=== PATIENT | male | born 1970 | race Caucasian/White ===

== ENCOUNTER 2016-11-23 09:08 | Emergency (ER) | payer OTHER ==
--- NOTE | 2016-11-23 09:28 | EDM.PDOC ---
ED HPI GENERAL MEDICAL PROBLEM - General Chief Complaint: ENT Problem Stated Complaint: SINUS INFECTION Time Seen by Provider: 11/23/16 09:27 Source of Information: Reports: Patient - History of Present Illness INITIAL COMMENTS - FREE TEXT/NARRATIVE: HISTORY AND PHYSICAL: History of present illness: [] Sinus pain and tenderness right greater than left for one to 2 weeks failed [id number] symptomatic therapy No fever nausea vomiting chills sweats Review of systems: As per history of present illness and below otherwise all systems reviewed and negative. Past medical history: As per history of present illness and as reviewed below otherwise noncontributory. Surgical history: As per history of present illness and as reviewed below otherwise noncontributory. Social history: No reported history of drug or alcohol abuse. Family history: As per history of present illness and as reviewed below otherwise noncontributory. Physical exam: HEENT: Atraumatic, normocephalic, pupils reactive, negative for conjunctival pallor or scleral icterus, mucous membranes moist, throat clear, neck supple, nontender, trachea midline. Sinus tenderness right greater than left maxillary and supraorbital sinus Lungs: Clear to auscultation, breath sounds equal bilaterally, chest nontender. Heart: S1S2, regular, negative for clicks, rubs, or JVD. Abdomen: Soft, nondistended, nontender. Negative for masses or hepatosplenomegaly. Negative for costovertebral tenderness. Pelvis: Stable nontender. Genitourinary: Deferred. Rectal: Deferred. Extremities: Atraumatic, negative for cords or calf pain. Neurovascular unremarkable. Neuro: Awake, alert, oriented. Cranial nerves II through XII unremarkable. Cerebellum unremarkable. Motor and sensory unremarkable throughout. Exam nonfocal. Diagnostics: [] Therapeutics: [] Rocephin 1 g IM Augmentin 875 by mouth twice a day #20 no refill Flonase Continue [id number] symptomatic therapy Impression: [] Acute sinusitis Definitive disposition and diagnosis as appropriate pending reevaluation and review of above. Face Pain Score (Numeric/FACES): 6 - Related Data Allergies Allergy/AdvReac Type Severity Reaction Status Date / Time No Known Allergies Allergy Verified 11/23/16 09:18 Home Meds: Home Meds . [No Known Home Meds] 11/23/16 [History] Past Medical History - Past Health History Medical/Surgical History: Denies Medical/Surgical History - Infectious Disease History Infectious Disease History: Reports: Chicken Pox Social & Family History - Family History Family Medical History: Noncontributory - Tobacco Use Smoking Status *Q: Current Every Day Smoker Years of Tobacco use: 20 Packs/Tins Daily: 0.5 - Caffeine Use Caffeine Use: Reports: None - Recreational Drug Use Recreational Drug Use: No ED ROS GENERAL - Review of Systems Review Of Systems: ROS reveals no pertinent complaints other than HPI. ED EXAM, GENERAL - Physical Exam Exam: See Below Course - Vital Signs Last Recorded V/S: Last Vital Signs Temp 36.8 C 11/23/16 09:16 Pulse 112 H 11/23/16 09:16 Resp 18 11/23/16 09:16 BP 125/78 11/23/16 09:16 Pulse Ox 98 11/23/16 09:16 - Orders/Labs/Meds Orders: Active Orders 24 hr Category Date Time Status cefTRIAXone [Rocephin] 1,000 mg Med 11/23/16 09:32 Ordered Lidocaine 1% [Xylocaine-MPF 1%] 4 ml IM ONETIME Medication Orders Ceftriaxone Sodium 1,000 mg/ (Lidocaine HCl) 4 mls @ 4 mls/sec IM ONETIME ONE Stop: 11/23/16 09:33 Meds: Medications Generic Name Dose Route Start Last Admin Trade Name Danette PRN Reason Stop Dose Admin Ceftriaxone Sodium 1,000 mg/ 4 mls @ 4 mls/sec 11/23/16 09:32 Lidocaine HCl IM 11/23/16 09:33 ONETIME ONE Departure - Departure Time of Disposition: 09:34 Disposition: Home, Self-Care 01 Condition: good Clinical Impression: Acute sinusitis - Discharge Information Forms: ED Department Discharge Additional Instructions: [id number] therapy is as discussed Claritin Mucinex conrado pot Medication as prescribed Followup with ENT if persist or worsen [facility] - ENT [address] [place] [address] The following information is given to patients seen in the emergency department who are being discharged to home. This information is to outline your options for follow-up care. We provide all patients seen in our emergency department with a follow-up referral. The need for follow-up, as well as the timing and circumstances, are variable depending upon the specifics of your emergency department visit. If you don't have a primary care physician on staff, we will provide you with a referral. We always advise you to contact your personal physician following an emergency department visit to inform them of the circumstance of the visit and for follow-up with them and/or the need for any referrals to a consulting specialist. The emergency department will also refer you to a specialist when appropriate. This referral assures that you have the opportunity for follow-up care with a specialist. All of these measure are taken in an effort to provide you with optimal care, which includes your follow-up. Under all circumstances we always encourage you to contact your private physician who remains a resource for coordinating your care. When calling for follow-up care, please make the office aware that this follow-up is from your recent emergency room visit. If for any reason you are refused follow-up, please contact the [facility] emergency department at and asked to speak to the emergency department charge nurse. - My Orders Last 24 Hours: My Active Orders 11/23/16 09:32 cefTRIAXone [Rocephin] 1,000 mg Lidocaine 1% [Xylocaine-MPF 1%] 4 ml IM ONETIME - Assessment/Plan Last 24 Hours: My Active Orders 11/23/16 09:32 cefTRIAXone [Rocephin] 1,000 mg Lidocaine 1% [Xylocaine-MPF 1%] 4 ml IM ONETIME
[2016-11-23] MEDS ORDERED: cefTRIAXone 1,000 MG in Lidocaine 1% 4 ML IM ONE (09:32)
[2016-11-23 10:26] VITALS: BP 148/100
== END 2016-11-23 10:18 | disposition home or self-care (01) ==
LOC: MW.ED 09:08
DX: J01.90 Acute sinusitis, unspecified (principal); F17.210 Nicotine dependence, cigarettes, uncomplicated
CPT/HCPCS: 96372; 99283; J0696

== ENCOUNTER 2018-09-09 08:29 | Emergency (ER) | payer BC, OTHER ==
[2018-09-09] MEDS ORDERED: Albuterol 0.083% 2.5 MG/3 ML Neb Soln NEB ONE (08:45)
--- NOTE | 2018-09-09 08:50 | EDM.PDOC ---
ED HPI GENERAL MEDICAL PROBLEM - General Chief Complaint: ENT Problem Stated Complaint: SORE THROAT AND COUGH Time Seen by Provider: 09/09/18 08:38 Source of Information: Reports: Patient History Limitations: Reports: No Limitations - History of Present Illness INITIAL COMMENTS - FREE TEXT/NARRATIVE: History of present illness: []Patient has had over a week of sore throat, cough, congestion. He has had exposure to similar symptoms at work. He states he has shortness of breath and he starts coughing.. Review of systems: As per history of present illness and below otherwise all systems reviewed and negative. Past medical history: As per history of present illness and as reviewed below otherwise noncontributory. Surgical history: As per history of present illness and as reviewed below otherwise noncontributory. Social history: No reported history of drug or alcohol abuse. Family history: As per history of present illness and as reviewed below otherwise noncontributory. Physical exam: General: Well developed, well nourished in NAD HEENT: Atraumatic, normocephalic, pupils reactive, negative for conjunctival pallor or scleral icterus, mucous membranes moist, throat erythematous with edema and exudate, neck supple, nontender, trachea midline. Cervical adenopathy palpable, no stridor Lungs: Bilateral expiratory wheezing with rhonchi, chest nontender. No chest wall retractions or respiratory distress Heart: S1S2, regular, negative for clicks, rubs, or JVD. Abdomen: NABS, Soft, nondistended, nontender. Negative for masses or hepatosplenomegaly. Negative for costovertebral tenderness. Pelvis: Stable nontender. Genitourinary: Deferred. Rectal: Deferred. Extremities: Atraumatic, negative for cords or calf pain. Neurovascular unremarkable. Neuro: Awake, alert, oriented. Cranial nerves II through XII unremarkable. Cerebellum unremarkable. Motor and sensory unremarkable throughout. Exam nonfocal. Skin:warm and dry Diagnostics: None Therapeutics: Albuterol ED Course: Unremarkable Impression: URI Prescriptions: Amoxicillin, Advair Plan: Take meds as directed, Follow-up with primary care return if symptoms worsen or change. Definitive disposition and diagnosis as appropriate pending reevaluation and review of above. Generalized Pain Score (Numeric/FACES): 2 - Related Data Allergies Allergy/AdvReac Type Severity Reaction Status Date / Time No Known Allergies Allergy Verified 09/09/18 08:43 Home Meds: Home Meds Amoxicillin 875 mg PO BID 10 Days #20 tab 09/09/18 [Rx] Fluticasone/Salmeterol [Advair 250-50 Diskus] 1 each IH BID #1 disk.w.dev [Rx] Past Medical History - Past Health History Medical/Surgical History: Denies Medical/Surgical History - Infectious Disease History Infectious Disease History: Reports: Chicken Pox Social & Family History - Family History Family Medical History: Noncontributory - Tobacco Use Smoking Status *Q: Current Every Day Smoker Years of Tobacco use: 29 Packs/Tins Daily: 1 - Caffeine Use Caffeine Use: Reports: None - Recreational Drug Use Recreational Drug Use: No ED ROS ENT - Review of Systems Review Of Systems: ROS reveals no pertinent complaints other than HPI. ED EXAM, ENT - Physical Exam Exam: See Below (See history of present illness) Course - Vital Signs Last Recorded V/S: Last Vital Signs Temp 97.7 F 09/09/18 08:40 Pulse 91 09/09/18 08:40 Resp 18 09/09/18 08:40 BP 148/93 H 09/09/18 08:40 Pulse Ox 96 09/09/18 08:40 - Orders/Labs/Meds Orders: Active Orders 24 hr Category Date Time Status RT Aerosol Therapy [RC] ASDIRECTED Care 09/09/18 08:45 Ordered Meds: Medications Discontinued Medications Generic Name Dose Route Start Last Admin Trade Name Freq PRN Reason Stop Dose Admin Albuterol 2.5 mg 09/09/18 08:45 Proventil Neb Soln NEB 09/09/18 08:46 ONETIME ONE Departure - Departure Time of Disposition: 09:02 Disposition: Home, Self-Care 01 Condition: Good Clinical Impression: Bronchitis - Discharge Information *PRESCRIPTION DRUG MONITORING PROGRAM REVIEWED*: No *COPY OF PRESCRIPTION DRUG MONITORING REPORT IN PATIENT ANGEL: No Prescriptions: Amoxicillin 875 mg PO BID 10 Days #20 tab Fluticasone/Salmeterol [Advair 250-50 Diskus] 1 each IH BID #1 disk.w.dev Referrals: PCP,None [Primary Care Provider] - Forms: ED Department Discharge Additional Instructions: The following information is given to patients seen in the emergency department who are being discharged to home. This information is to outline your options for follow-up care. We provide all patients seen in our emergency department with a follow-up referral. The need for follow-up, as well as the timing and circumstances, are variable depending upon the specifics of your emergency department visit. If you don't have a primary care physician on staff, we will provide you with a referral. We always advise you to contact your personal physician following an emergency department visit to inform them of the circumstance of the visit and for follow-up with them and/or the need for any referrals to a consulting specialist. The emergency department will also refer you to a specialist when appropriate. This referral assures that you have the opportunity for follow-up care with a specialist. All of these measure are taken in an effort to provide you with optimal care, which includes your follow-up. Under all circumstances we always encourage you to contact your private physician who remains a resource for coordinating your care. When calling for follow-up care, please make the office aware that this follow-up is from your recent emergency room visit. If for any reason you are refused follow-up, please contact the [facility] Emergency Department at and asked to speak to the emergency department charge nurse. Take meds as directed, follow up with your primary care physician, return to ER if symptoms worsen or change. It would help to stop smoking. [facility] [address] [place] [id number] - My Orders Last 24 Hours: My Active Orders 09/09/18 08:45 RT Aerosol Therapy [RC] ASDIRECTED - Assessment/Plan Last 24 Hours: My Active Orders 09/09/18 08:45 RT Aerosol Therapy [RC] ASDIRECTED
[2018-09-09 11:34] VITALS: BP 143/84
== END 2018-09-09 09:06 | disposition home or self-care (01) ==
LOC: MW.ED 08:29
DX: J40 Bronchitis, not specified as acute or chronic (principal); J06.9 Acute upper respiratory infection, unspecified; F17.210 Nicotine dependence, cigarettes, uncomplicated
CPT/HCPCS: 94640; 99282; 99283

== ENCOUNTER 2019-03-30 07:51 | Observation (INO) | payer BC ==
[2019-03-30] MEDS ORDERED: Sodium Chloride 0.9% 10 ML Syringe FLUSH PRN (07:52)
[2019-03-30] MEDS ORDERED: Sodium Chloride 0.9% 2.5 ML Syringe FLUSH PRN (07:52)
[2019-03-30] MEDS ORDERED: Albuterol 0.083% 2.5 MG/3 ML Neb Soln NEB ONE (08:04)
[2019-03-30] MEDS ORDERED: methylPREDNISolone Sodium Succinate 125 MG/2 ML SDV IVPUSH ONE (08:04)
--- NOTE | 2019-03-30 08:11 | EDM.PDOC ---
ED HPI GENERAL MEDICAL PROBLEM - General Chief Complaint: Cardiovascular Problem Stated Complaint: PASSED OUT, FELL AND HIT HEAD Time Seen by Provider: 03/30/19 07:52 Source of Information: Reports: Patient History Limitations: Reports: No Limitations - History of Present Illness INITIAL COMMENTS - FREE TEXT/NARRATIVE: HISTORY AND PHYSICAL: History of present illness: Patient is a 48-year-old male who presents to the ED today with concern of a near syncopal event that occurred just prior to arrival to the ED. Patient states he started having a "coughing attack "and felt dizzy and lightheaded and started to feel himself falling and hit his left elbow on the ground but caught himself and did not hit his head.Patient states he's had this occur before due to coughing which has been occurring more frequently / and worsening. Patient states his only complaint at this time is his left elbow pain but has had these episodes more frequently lately. Patient states then fully able to move his elbow but does have a scratch on the elbow. Patient states he has a history of COPD, hypertension, and Gilbert's disease. Patient denies fever, chills, chest pain, shortness of breath. Denies headache, neck stiff ness, change in vision, syncope. Denies nausea, vomiting, abdominal pain, diarrhea, constipation, or dysuria. Has not noted any blood in urine or stool. Patient has been eating and drinking appropriately. Review of systems: As per history of present illness and below otherwise all systems reviewed and negative. Past medical history: As per history of present illness and as reviewed below otherwise noncontributory. Surgical history: As per history of present illness and as reviewed below otherwise noncontributory. Social history: See social history for further information Family history: As per history of present illness and as reviewed below otherwise noncontributory. Physical exam: General: Patient is alert, oriented, and in no acute distress. Patient sitting comfortably on exam table. HEENT: Atraumatic, normocephalic, pupils equal and reactive bilaterally, negative for conjunctival pallor or scleral icterus, mucous membranes moist, TMs normal bilaterally, throat clear, neck supple, nontender, trachea midline. No drooling or trismus noted. No meningeal signs. No hot potato voice noted. Lungs: Diffuse wheezing to auscultation throughout bilateral lung solis, breath sounds equal bilaterally, chest nontender. Heart: S1S2, regular rate and rhythm without overt murmur Abdomen: Obese, Soft, nondistended, nontender. Negative for masses or hepatosplenomegaly. Negative for costovertebral tenderness. Pelvis: Stable nontender. Genitourinary: Deferred. Rectal: Deferred. Skin: Intact, warm, dry. No lesions or rashes noted. Extremities: Negative for cords or calf pain. Neurovascular unremarkable. There is a superficial abrasion over the left elbow with mild bleeding. Patient has full range of motion of complete bilateral upper/lower extremities without pain or difficulty. Radial pulses are grossly intact bilaterally with capillary refill less than 2 seconds. Dorsalis is some posterior tibial pulses are grossly intact and capillary refill less than 2 seconds. No obvious deformity of the complete spine. No step-offs, crepitus, or pain with palpation of the complete spine. Neuro: Awake, alert, oriented. Cranial nerves II through XII unremarkable. Cerebellum unremarkable. Motor and sensory unremarkable throughout. Exam nonfocal. Notes: Dr. Armstrong consulted on patient and will admit to observation. Voices understanding and is agreeable to plan of care. Denies any further questions or concerns at this time. Diagnostics: CBC, CMP, UA, EKG, chest x-ray, troponin, orthostatic vitals, elbow x-ray, head CT Therapeutics: Saline lock, albuterol nebulizer, Solu-Medrol, wound dressing Impression: Near Syncope r/o ACS Elbow injury / abrasion H/O COPD Plan: 1. Admit to observation to Dr. Armstrong Definitive disposition and diagnosis as appropriate pending reevaluation and review of above. left elbow Pain Score (Numeric/FACES): 5 - Related Data Allergies Allergy/AdvReac Type Severity Reaction Status Date / Time tetrabenazine Allergy Severe Other Verified 03/30/19 07:53 umeclidinium Allergy Severe Swollen Verified 03/30/19 07:54 [From Incruse Ellipta] Tongue Home Meds: Home Meds Lisinopril 20 mg PO DAILY 03/30/19 [History] Past Medical History - Past Health History Medical/Surgical History: Denies Medical/Surgical History HEENT History: Reports: Impaired Vision Cardiovascular History: Reports: Hypertension Respiratory History: Reports: COPD Gastrointestinal History: Reports: None Genitourinary History: Reports: None Musculoskeletal History: Reports: None Neurological History: Reports: Other (See Below) Other Neuro History: Gilbert disease Psychiatric History: Reports: None Endocrine/Metabolic History: Reports: None Hematologic History: Reports: None Immunologic History: Reports: None Oncologic (Cancer) History: Reports: None Dermatologic History: Reports: None - Infectious Disease History Infectious Disease History: Reports: Chicken Pox - Past Surgical History Head Surgeries/Procedures: Reports: None HEENT Surgical History: Reports: None Cardiovascular Surgical History: Reports: None Respiratory Surgical History: Reports: None GI Surgical History: Reports: None Male Surgical History: Reports: None Endocrine Surgical History: Reports: None Neurological Surgical History: Reports: None Musculoskeletal Surgical History: Reports: None Oncologic Surgical History: Reports: None Dermatological Surgical History: Reports: None Social & Family History - Family History Family Medical History: Noncontributory - Tobacco Use Smoking Status *Q: Current Every Day Smoker Years of Tobacco use: 30 Packs/Tins Daily: 1 - Caffeine Use Caffeine Use: Reports: Soda - Recreational Drug Use Recreational Drug Use: No ED ROS GENERAL - Review of Systems Review Of Systems: ROS reveals no pertinent complaints other than HPI. ED EXAM, GENERAL - Physical Exam Exam: See Below (See dictation) Course - Vital Signs Last Recorded V/S: Last Vital Signs Temp 96.2 F 03/30/19 07:55 Pulse 91 03/30/19 07:55 Resp 18 03/30/19 07:55 BP 146/96 H 03/30/19 07:55 Pulse Ox 96 03/30/19 07:55 Orthostatic Blood Pressure [ 139/82 Standing] Orthostatic Blood Pressure [ 130/79 Sitting] Orthostatic Blood Pressure [ 159/97 Supine] - Orders/Labs/Meds Orders: Active Orders 24 hr Category Date Time Status Admission Status [Patient Status] [ADT] Stat ADT 03/30/19 09:51 Ordered Communication Order [RC] STAT Care 03/30/19 09:18 Active EKG Documentation Completion [RC] STAT Care 03/30/19 07:52 Active Orthostatic Vital Signs [RC] ASDIRECTED Care 03/30/19 07:53 Active RT Aerosol Therapy [RC] ASDIRECTED Care 03/30/19 08:04 Active Sodium Chloride 0.9% [Saline Flush] Med 03/30/19 07:52 Active 10 ml FLUSH ASDIRECTED PRN Sodium Chloride 0.9% [Saline Flush] Med 03/30/19 07:52 Active 2.5 ml FLUSH ASDIRECTED PRN Saline Lock Insert [OM.PC] Stat Oth 03/30/19 07:52 Ordered Medication Orders Sodium Chloride (Saline Flush) 10 ml FLUSH ASDIRECTED PRN PRN Reason: Keep Vein Open Sodium Chloride (Saline Flush) 2.5 ml FLUSH ASDIRECTED PRN PRN Reason: Keep Vein Open Labs: Laboratory Tests 03/30/19 03/30/19 03/30/19 Range/Units 08:13 08:13 09:17 WBC 7.23 (4.0-11.0) K/uL RBC 5.36 (4.50-5.90) M/uL Hgb 17.1 H (13.0-17.0) g/dL Hct 49.6 (38.0-50.0) % MCV 92.5 (80.0-98.0) fL MCH 31.9 (27.0-32.0) pg MCHC 34.5 (31.0-37.0) g/dL RDW Std Deviation 46.7 (28.0-62.0) fl RDW Coeff of Laura 14 (11.0-15.0) % Plt Count 211 (150-400) K/uL MPV 10.30 (7.40-12.00) fL Neut % (Auto) 59.7 (48.0-80.0) % Lymph % (Auto) 27.4 (16.0-40.0) % Greer % (Auto) 7.3 (0.0-15.0) % Eos % (Auto) 5.0 (0.0-7.0) % Baso % (Auto) 0.6 (0.0-1.5) % Neut # (Auto) 4.3 (1.4-5.7) K/uL Lymph # (Auto) 2.0 (0.6-2.4) K/uL Greer # (Auto) 0.5 (0.0-0.8) K/uL Eos # (Auto) 0.4 (0.0-0.7) K/uL Baso # (Auto) 0.0 (0.0-0.1) K/uL Nucleated RBC % 0.0 /100WBC Nucleated RBCs # 0 K/uL Sodium 136 (136-148) mmol/L Potassium 4.1 (3.5-5.1) mmol/L Chloride 100 (98-107) mmol/L Carbon Dioxide 23.6 (21.0-32.0) mmol/L BUN 9 (7.0-18.0) mg/dL Creatinine 1.1 (0.8-1.3) mg/dL Est Cr Clr Drug Dosing 74.92 mL/min Estimated GFR (MDRD) > 60.0 ml/min Glucose 122 H (74-106) mg/dL Calcium 8.6 (8.5-10.1) mg/dL Total Bilirubin 0.3 (0.2-1.0) mg/dL AST 33 (15-37) IU/L ALT 55 (14-63) IU/L Alkaline Phosphatase 85 (46-116) U/L Troponin I < 0.050 (0.000-0.056) ng/mL Total Protein 7.6 (6.4-8.2) g/dL Albumin 3.5 (3.4-5.0) g/dL Globulin 4.1 H (2.6-4.0) g/dL Albumin/Globulin Ratio 0.9 (0.9-1.6) Urine Color YELLOW Urine Appearance CLEAR Urine pH 6.0 (5.0-8.0) Ur Specific Fenton <= 1.005 (1.001-1.035) Urine Protein NEGATIVE (NEGATIVE) mg/dL Urine Glucose (UA) NEGATIVE (NEGATIVE) mg/dL Urine Ketones NEGATIVE (NEGATIVE) mg/dL Urine Occult Blood NEGATIVE (NEGATIVE) Urine Nitrite NEGATIVE (NEGATIVE) Urine Bilirubin NEGATIVE (NEGATIVE) Urine Urobilinogen 0.2 (<2.0) EU/dL Ur Leukocyte Esterase NEGATIVE (NEGATIVE) Meds: Medications Generic Name Dose Route Start Last Admin Trade Name Freq PRN Reason Stop Dose Admin Sodium Chloride 10 ml 03/30/19 07:52 Saline Flush FLUSH ASDIRECTED PRN Keep Vein Open Sodium Chloride 2.5 ml 03/30/19 07:52 Saline Flush FLUSH ASDIRECTED PRN Keep Vein Open Discontinued Medications Generic Name Dose Route Start Last Admin Trade Name Freq PRN Reason Stop Dose Admin Albuterol 2.5 mg 03/30/19 08:04 03/30/19 08:30 Proventil Neb Soln NEB 03/30/19 08:05 2.5 mg ONETIME ONE Administration Methylprednisolone Sodium Succinate 125 mg 03/30/19 08:04 03/30/19 08:10 Solu-Medrol IVPUSH 03/30/19 08:05 125 mg ONETIME ONE Administration Departure - Departure Time of Disposition: 09:52 Disposition: Refer to Observation Clinical Impression: Near syncope, History of COPD Referrals: PCP,None [Primary Care Provider] - Forms: ED Department Discharge - My Orders Last 24 Hours: My Active Orders 03/30/19 07:52 EKG Documentation Completion [RC] STAT Sodium Chloride 0.9% [Saline Flush] 10 ml FLUSH ASDIRECTED PRN Sodium Chloride 0.9% [Saline Flush] 2.5 ml FLUSH ASDIRECTED PRN Saline Lock Insert [OM.PC] Stat 03/30/19 07:53 Orthostatic Vital Signs [RC] ASDIRECTED 03/30/19 08:04 RT Aerosol Therapy [RC] ASDIRECTED 03/30/19 09:18 Communication Order [RC] STAT 03/30/19 09:51 Admission Status [Patient Status] [ADT] Stat - Assessment/Plan Last 24 Hours: My Active Orders 03/30/19 07:52 EKG Documentation Completion [RC] STAT Sodium Chloride 0.9% [Saline Flush] 10 ml FLUSH ASDIRECTED PRN Sodium Chloride 0.9% [Saline Flush] 2.5 ml FLUSH ASDIRECTED PRN Saline Lock Insert [OM.PC] Stat 03/30/19 07:53 Orthostatic Vital Signs [RC] ASDIRECTED 03/30/19 08:04 RT Aerosol Therapy [RC] ASDIRECTED 03/30/19 09:18 Communication Order [RC] STAT 03/30/19 09:51 Admission Status [Patient Status] [ADT] Stat
[2019-03-30 09:07] LABS: BLOOD UREA NITROGEN,BUN 9 mg/dL (7.0-18.0); CARBON DIOXIDE,CO2 23.6 mmol/L (21.0-32.0); CHLORIDE,CL 100 mmol/L (98-107); GLUCOSE RANDOM 122 mg/dL (74-106); POTASSIUM,K 4.1 mmol/L (3.5-5.1); SODIUM,NA 136 mmol/L (136-148)
--- NOTE | 2019-03-30 09:12 | CT ---
INDICATION: Fall, injury and pain. TECHNIQUE: CT head without contrast. COMPARISON: None. FINDINGS: CSF spaces: Within normal limits for age. Brain parenchyma and extra-axial spaces: The aranda-white differentiation is normal. No sign of mass, hemorrhage, or midline shift. No extra-axial fluid collection. Skull base and calvarium: The visualized paranasal sinuses and mastoid air cells demonstrate no acute or significant findings. The visualized orbits are grossly unremarkable. No skull fractures. IMPRESSION: Unremarkable noncontrast head CT. Please note that all CT scans at this facility use dose modulation, iterative reconstruction, and/or weight-based dosing when appropriate to reduce radiation dose to as low as reasonably achievable. Dictated by Herbert Arias MD @ Mar 30 2019 9:03AM Signed by Dr. Herbert Arias @ Mar 30 2019 9:11AM
--- NOTE | 2019-03-30 09:14 | CR ---
INDICATION: Chest pain and shortness of breath TECHNIQUE: Chest 2 views COMPARISON: 01/08/2019 FINDINGS: Cardiovascular and mediastinum: Heart size and vasculature are normal in caliber and appearance. Lungs and pleural spaces: Lungs are clear. No sign of infiltrate or mass. No sign of pleural effusion. No pneumothorax. Bones and soft tissues: No significant findings. IMPRESSION: No acute findings and no significant changes from the prior exam. Dictated by Herbert Arias MD @ Mar 30 2019 9:11AM Signed by Dr. Herbert Arias @ Mar 30 2019 9:12AM
--- NOTE | 2019-03-30 09:16 | CR ---
Indication: Injury and pain Technique: Left elbow 3 views Comparison: None Findings: Bones: Alignment is normal. No fractures or bone lesions. Joint spaces: Unremarkable. No sign of joint effusion. Soft tissues: Unremarkable. Impression: No sign of acute injury. Dictated by Herbert Arias MD @ Mar 30 2019 9:12AM Signed by Dr. Herbert Arias @ Mar 30 2019 9:13AM
--- NOTE | 2019-03-30 12:19 | PCM.HP.2 ---
H&P History of Present Illness - General Date of Service: 03/30/19 Admit Problem/Dx: Admission Diagnosis/Problem Admission Diagnosis/Problem Syncope - History of Present Illness Initial Comments - Free Text/Narative: 48 yo male with pmh of COPD, hypertension, and [place]'s disease who presented to the ED following a near syncopal event. Patient reports over the past three months he has had a cough that has progressively gotten worse. He feels as if something is in side his throat that is irritating it. He has no problems swallowing. Over the past several days he has notice some shortness of breath with the coughing fits to the point were he feels like he is almost about to pass out. Today he did fall to the ground due to these symptoms but denies ever losing consciousness. He does admit to having heart burn. He has been on and off lisinopril for a few years but does not recall if his cough correlates with him being on the medication. left elbow Pain Score (Numeric/FACES): 5 - Related Data Allergies/Adverse Reactions: Allergies Allergy/AdvReac Type Severity Reaction Status Date / Time tetrabenazine Allergy Severe Other Verified 03/30/19 11:08 umeclidinium Allergy Severe Swollen Verified 03/30/19 11:08 [From Incruse Ellipta] Tongue Home Medications: Home Meds Lisinopril 20 mg PO DAILY 03/30/19 [History] Past Medical History - Past Health History Medical/Surgical History: Denies Medical/Surgical History HEENT History: Reports: Impaired Vision Cardiovascular History: Reports: Hypertension Respiratory History: Reports: COPD Gastrointestinal History: Reports: None Genitourinary History: Reports: None Musculoskeletal History: Reports: None Neurological History: Reports: Other (See Below) Other Neuro History: Tonya disease Psychiatric History: Reports: None Endocrine/Metabolic History: Reports: None Hematologic History: Reports: None Immunologic History: Reports: None Oncologic (Cancer) History: Reports: None Dermatologic History: Reports: None - Infectious Disease History Infectious Disease History: Reports: Chicken Pox - Past Surgical History Head Surgeries/Procedures: Reports: None HEENT Surgical History: Reports: None Cardiovascular Surgical History: Reports: None Respiratory Surgical History: Reports: None GI Surgical History: Reports: None Male Surgical History: Reports: None Endocrine Surgical History: Reports: None Neurological Surgical History: Reports: None Musculoskeletal Surgical History: Reports: None Oncologic Surgical History: Reports: None Dermatological Surgical History: Reports: None Social & Family History - Family History Family Medical History: Noncontributory - Tobacco Use Smoking Status *Q: Current Every Day Smoker Years of Tobacco use: 30 Packs/Tins Daily: 1 - Caffeine Use Caffeine Use: Reports: Soda - Recreational Drug Use Recreational Drug Use: No H&P Review of Systems - Review of Systems: Review Of Systems: ROS reveals no pertinent complaints other than HPI. Exam - Exam Exam: See Below - Vital Signs Vital Signs: Last Vital Signs Temp 36.1 C 03/30/19 10:40 Pulse 90 03/30/19 10:40 Resp 16 03/30/19 10:40 BP 116/68 03/30/19 10:40 Pulse Ox 96 03/30/19 10:40 Orthostatic Blood Pressure [ 139/82 Standing] Orthostatic Blood Pressure [ 130/79 Sitting] Orthostatic Blood Pressure [ 159/97 Supine] Weight: 110.677 kg - Exam General: Alert, Oriented HEENT: Mucosa Moist & [place] Lungs: Normal Respiratory Effort, Wheezing (mild occasional) Cardiovascular: Regular Rate, Regular Rhythm GI/Abdominal Exam: Soft, Non-Tender Extremities: Non-Tender, No Pedal Edema - Patient Data Lab Results Last 24 hrs: Laboratory Results - last 24 hr 03/30/19 03/30/19 03/30/19 Range/Units 08:13 08:13 09:17 WBC 7.23 (4.0-11.0) K/uL RBC 5.36 (4.50-5.90) M/uL Hgb 17.1 H (13.0-17.0) g/dL Hct 49.6 (38.0-50.0) % MCV 92.5 (80.0-98.0) fL MCH 31.9 (27.0-32.0) pg MCHC 34.5 (31.0-37.0) g/dL RDW Std Deviation 46.7 (28.0-62.0) fl RDW Coeff of Laura 14 (11.0-15.0) % Plt Count 211 (150-400) K/uL MPV 10.30 (7.40-12.00) fL Neut % (Auto) 59.7 (48.0-80.0) % Lymph % (Auto) 27.4 (16.0-40.0) % [place] % (Auto) 7.3 (0.0-15.0) % Eos % (Auto) 5.0 (0.0-7.0) % Baso % (Auto) 0.6 (0.0-1.5) % Neut # (Auto) 4.3 (1.4-5.7) K/uL Lymph # (Auto) 2.0 (0.6-2.4) K/uL [place] # (Auto) 0.5 (0.0-0.8) K/uL Eos # (Auto) 0.4 (0.0-0.7) K/uL Baso # (Auto) 0.0 (0.0-0.1) K/uL Nucleated RBC % 0.0 /100WBC Nucleated RBCs # 0 K/uL Sodium 136 (136-148) mmol/L Potassium 4.1 (3.5-5.1) mmol/L Chloride 100 (98-107) mmol/L Carbon Dioxide 23.6 (21.0-32.0) mmol/L BUN 9 (7.0-18.0) mg/dL Creatinine 1.1 (0.8-1.3) mg/dL Est Cr Clr Drug Dosing 74.92 mL/min Estimated GFR (MDRD) > 60.0 ml/min Glucose 122 H (74-106) mg/dL Calcium 8.6 (8.5-10.1) mg/dL Total Bilirubin 0.3 (0.2-1.0) mg/dL AST 33 (15-37) IU/L ALT 55 (14-63) IU/L Alkaline Phosphatase 85 (46-116) U/L Troponin I < 0.050 (0.000-0.056) ng/mL Total Protein 7.6 (6.4-8.2) g/dL Albumin 3.5 (3.4-5.0) g/dL Globulin 4.1 H (2.6-4.0) g/dL Albumin/Globulin Ratio 0.9 (0.9-1.6) Urine Color YELLOW Urine Appearance CLEAR Urine pH 6.0 (5.0-8.0) Ur Specific [place] <= 1.005 (1.001-1.035) Urine Protein NEGATIVE (NEGATIVE) mg/dL Urine Glucose (UA) NEGATIVE (NEGATIVE) mg/dL Urine Ketones NEGATIVE (NEGATIVE) mg/dL Urine Occult Blood NEGATIVE (NEGATIVE) Urine Nitrite NEGATIVE (NEGATIVE) Urine Bilirubin NEGATIVE (NEGATIVE) Urine Urobilinogen 0.2 (<2.0) EU/dL Ur Leukocyte Esterase NEGATIVE (NEGATIVE) Result Diagrams: 03/30/19 08:13 03/30/19 08:13 Problem List Initiated/Reviewed/Updated: Yes Orders Last 24hrs: Active Orders 24 hr Category Date Time Status Admission Status [Patient Status] [ADT] Stat ADT 03/30/19 09:51 Active Antiembolic Devices [RC] PER UNIT ROUTINE Care 03/30/19 12:11 Ordered Oxygen Therapy [RC] PRN Care 03/30/19 12:10 Ordered RT Aerosol Therapy [RC] ASDIRECTED Care 03/30/19 08:04 Active RT Aerosol Therapy [RC] ASDIRECTED Care 03/30/19 12:11 Ordered RT Post Treatment Assessment [RC] Click to Edit Care 03/30/19 12:13 Ordered RT Pre-Treatment Assessment [RC] Click to Edit Care 03/30/19 12:13 Ordered Up ad Deborah [RC] ASDIRECTED Care 03/30/19 12:10 Ordered VTE/DVT Education [RC] PER UNIT ROUTINE Care 03/30/19 12:10 Ordered Vital Signs [RC] Q4H Care 03/30/19 12:10 Ordered Regular Diet [DIET] Diet 03/30/19 Breakfast Ordered Chest w Cont [CT] Routine Exams 03/30/19 12:12 Ordered Soft Tissue Neck w Cont [CT] Routine Exams 03/30/19 12:12 Ordered BASIC METABOLIC PANEL,BMP [CHEM] AM Lab 03/31/19 05:11 Ordered CBC WITH AUTO DIFF [HEME] AM Lab 03/31/19 05:11 Ordered Albuterol [Proventil Neb Soln] Med 03/30/19 18:00 Ordered 2.5 mg NEB Q6HRRT Fluticasone Propionate [Flonase] Med 03/31/19 09:00 Ordered 1 gm NASBOTH DAILY Fluticasone/Salmeterol [Advair Diskus 250-50] Med 03/30/19 12:15 Ordered 1 puff INH BID Sodium Chloride 0.9% [Saline Flush] Med 03/30/19 07:52 Active 10 ml FLUSH ASDIRECTED PRN Sodium Chloride 0.9% [Saline Flush] Med 03/30/19 07:52 Active 2.5 ml FLUSH ASDIRECTED PRN Saline Lock Insert [OM.PC] Stat Oth 03/30/19 07:52 Ordered Sequential Compression Device [OM.PC] Per Unit Routine Oth 03/30/19 12:11 Ordered Resuscitation Status Routine Resus Stat 03/30/19 12:10 Ordered Medication Orders Albuterol (Proventil Neb Soln) 2.5 mg NEB Q6HRRT [facility] Fluticasone Propionate (Flonase) 1 gm NASBOTH DAILY [facility] Fluticasone/Salmeterol (Advair Diskus 250-50) 1 puff INH BID [facility] Sodium Chloride (Saline Flush) 10 ml FLUSH ASDIRECTED PRN PRN Reason: Keep Vein Open Sodium Chloride (Saline Flush) 2.5 ml FLUSH ASDIRECTED PRN PRN Reason: Keep Vein Open Assessment/Plan Comment:: 48 yo male admitted with near syncope from chronic cough. We will treat with albuterol nebs, advair, flonase, and PPI. We will hold his lisinopril.
[2019-03-30] MEDS: Fluticasone/Salmeterol 250-50 MCG Inhalation Powder 14/Diskus INH SCH ×2 (13:06→20:17)
[2019-03-30] MEDS: Pantoprazole 40 MG Tab.CR PO SCH (13:06)
[2019-03-30] MEDS ORDERED: Iopamidol 755 MG/ML 500 ML Multipack Bottle IVPUSH STA (15:57)
--- NOTE | 2019-03-30 17:10 | CT ---
CT chest Technique: Multiple axial sections through the chest were obtained with contrast. Comparison: No prior chest imaging. Findings: Lungs are clear with no acute parenchymal change. Very minimal extrapleural fat is seen within both sides of the inferior and posterior chest. Fatty infiltration is noted within the liver. No pericardial thickening is seen. Mild coronary artery calcification is noted. Aorta shows no aneurysm. Mediastinum and hilar regions show no adenopathy or mass. No axillary adenopathy is seen. Bone window settings were reviewed which show several mild compression deformities within the lower thoracic spine with associated degenerative disc change. This finding is felt to be old. No acute osseous abnormality is appreciated. Impression: 1. Spine changes as noted above which are felt to be old. 2. Fatty infiltration within the liver and minimal extrapleural fat within the chest. 3. Nothing acute is seen on CT study of the chest. Diagnostic code #2 MTDD
--- NOTE | 2019-03-30 17:11 | CT ---
CT neck Technique: Multiple axial sections through the neck were obtained. Intravenous contrast was utilized. Reconstructed coronal and sagittal images were reviewed. Mild mucosal thickening is seen within the ethmoid sinuses. Paranasal sinuses show no air-fluid levels. Parotid salivary glands appear within normal limits. Submandibular salivary glands appear within normal limits. No adenopathy or other neck mass is seen. Parapharyngeal soft tissues are within normal limits. Prevertebral soft tissues felt to be within normal limits. Epiglottis is felt to be within normal limits. Bone window settings were reviewed which shows slight degenerative change scattered within the apophyseal joints of the cervical spine. No acute osseous abnormality is appreciated. Impression: Findings which are felt to be incidental as noted above. Nothing acute is appreciated on CT study of the neck. Diagnostic code #2 MTDD
[2019-03-30] MEDS: Albuterol 0.083% 2.5 MG/3 ML Neb Soln NEB SCH ×2 (17:48→23:23)
[2019-03-31] MEDS: Albuterol 0.083% 2.5 MG/3 ML Neb Soln NEB SCH ×2 (05:49→11:10)
[2019-03-31 06:53] LABS: CARBON DIOXIDE,CO2 26.1 mmol/L (21.0-32.0); POTASSIUM,K 3.9 mmol/L (3.5-5.1)
[2019-03-31] MEDS ORDERED: Fluticasone Propionate Nasal Spray 16 GM Bottle NASBOTH SCH (09:00)
[2019-03-31] MEDS: Pantoprazole 40 MG Tab.CR PO SCH (09:03)
[2019-03-31] MEDS: Fluticasone/Salmeterol 250-50 MCG Inhalation Powder 14/Diskus INH SCH (09:24)
[2019-03-31] MEDS ORDERED: Sodium Chloride 0.9% 1,000 ML IV SCH (11:00)
[2019-03-31 12:13] VITALS: BP 130/66
--- NOTE | 2019-03-31 14:29 | PCM.DCSUM1 ---
Discharge Summary - Hospital Course Brief History: Patient is a 48-year-old male with past medical history COPD, hypertension, [place]'s disease who came to the ER secondary to a near syncopal episode following coughing spelled. Patient states that over past few months he has been having chronic cough and shortness of breath which is getting progressively worse and he also has a sensation that something is stuck in his throat. Patient denies any problems with his swallowing or speech. Patient states that he had a "coughing spell" which led to him almost losing his consciousness. Patient states that he fell to the ground but did not hit his head or lose his consciousness. Patient states that he has been taking lisinopril for his high blood pressure intermittently and does not recall if the cough correlates with administration of lisinopril.Patient also c/o dyspepsia. Patient was admitted to observation unit for further management. CBC , CMP, UA, EKG, chest x-ray, troponin, orthostatic vitals, elbow x-ray, head CT were ordered,CT scan was unremarkable,lab work upon admission was relatively benign. CT neck and chest was unremarkable as well. Lisinopril was stopped, Patient was started on Advir, flonase, PPI. Patients symptoms improved, patients WBC count had bumped up next day but it was attributed to steroids, patient denied fever, chills, N/V, dysuria. There was a slight bump in creatinine so patient recieved IV fluids. Patient recieved antibiotics for bronchitis. Patient was keen to go home, patient was medically stable to be discharged and was recommended to f/u with his PCP. Diagnosis: Stroke: No Modified [place] Scale: No Symptoms at All Modified [place] Scale Score: 0 - Discharge Data Discharge Date: 03/31/19 Discharge Disposition: Home, Self-Care 01 Condition: Fair - Referral to Home Health Primary Care Physician: PCP None - Discharge Diagnosis/Problem(s) (1) History of COPD SNOMED Code(s): 627282960 ICD Code: Z87.09 - PERSONAL HISTORY OF OTHER DISEASES OF THE RESPIRATORY SYSTEM Status: Acute Current Visit: Yes (2) Near syncope SNOMED Code(s): 587332794 ICD Code: R55 - SYNCOPE AND COLLAPSE Status: Acute Current Visit: Yes (3) Bronchitis SNOMED Code(s): 18777042 ICD Code: J40 - BRONCHITIS, NOT SPECIFIED ACUTE OR CHRONIC Status: Acute Current Visit: Yes (4) COPD (chronic obstructive pulmonary disease) SNOMED Code(s): 69568291 ICD Code: J44.9 - CHRONIC OBSTRUCTIVE PULMONARY DISEASE, UNSPECIFIED Status : Acute Current Visit: No - Patient Instructions Diet: Regular Diet as Tolerated - Discharge Plan *PRESCRIPTION DRUG MONITORING PROGRAM REVIEWED*: Not Applicable *COPY OF PRESCRIPTION DRUG MONITORING REPORT IN PATIENT ANGEL: Not Applicable Prescriptions/Med Rec: Albuterol [Proventil] 2.5 mg IH Q8HR PRN 30 Days #1 inhaler PRN Reason: Dyspnea Azithromycin [Zithromax] 250 mg PO Q24H 5 Days tablet Dextromethorphan/guaiFENesin [Robitussin DM] 10 ml PO Q6H PRN 10 Days #1 bottle PRN Reason: Cough Fluticasone Propionate [Flonase] 1 gm NASBOTH DAILY 10 Days #1 bottle Fluticasone/Salmeterol [Advair 250-50] 1 puff INH BID 30 Days #1 diskus Pantoprazole Sodium 40 mg PO ACBREAKFAST #30 tablet. Home Medications: Home Meds Albuterol [Proventil] 2.5 mg IH Q8HR PRN 30 Days #1 inhaler 03/31/19 [Rx] Azithromycin [Zithromax] 250 mg PO Q24H 5 Days tablet 03/31/19 [Rx] Dextromethorphan/guaiFENesin [Robitussin DM] 10 ml PO Q6H PRN 10 Days #1 bottle 03/31/19 [Rx] Fluticasone Propionate [Flonase] 1 gm NASBOTH DAILY 10 Days #1 bottle 03/31/19 [ Rx] Fluticasone/Salmeterol [Advair 250-50] 1 puff INH BID 30 Days #1 diskus [Rx] Pantoprazole Sodium 40 mg PO ACBREAKFAST #30 tablet. 03/31/19 [Rx] Oxygen Therapy Mode: Room Air Patient Handouts: Fluticasone nasal spray, Acute Bronchitis, Adult, Easy-to- Read, Guaifenesin oral solution and syrup, Azithromycin tablets, Pantoprazole tablets, Syncope, [id number], Fluticasone; Salmeterol inhalation aerosol Referrals: Kirsten Ochoa MD [Physician] - 04/18/19 11:15 am - Discharge Summary/Plan Comment DC Time >30 min.: Yes Discharge Summary/Plan Comment: Patient was admitted for worsening of cough followed by pre-syncope. Admitting labs were within normal limits, CXR was negative, CT head was negative for acute stroke, CT neck and chest was unremarkable as well. ACS was ruled out, Patient received steroids, Flonase, PPI and IV fluids for hydration. Patient was being discharged home with recommendations to f/u with his PCP to recheck his creatinine in 5-6 days. Patient was also counseled to stop smoking and remain hydrated. Lisinopril was stopped secondary to coughing spells. Patient received antibiotics for bronchitis. Stable for d/c - Patient Data Vitals - Most Recent: Last Vital Signs Temp 36.4 C 03/31/19 11:00 Pulse 85 03/31/19 11:00 Resp 16 03/31/19 11:00 BP 130/66 03/31/19 11:00 Pulse Ox 95 03/31/19 12:10 Orthostatic Blood Pressure [ 139/82 Standing] Orthostatic Blood Pressure [ 130/79 Sitting] Orthostatic Blood Pressure [ 159/97 Supine] Weight - Most Recent: 242 lb 9.6 oz I&O - Last 24 hours: Intake & Output 03/30/19 03/31/19 03/31/19 22:59 06:59 14:59 Intake Total 1291 800 360 Output Total 300 875 Balance 991 -75 360 Lab Results - Last 24 hrs: Laboratory Results - last 24 hr 03/31/19 03/31/19 Range/Units 06:15 06:15 WBC 22.02 H (4.0-11.0) K/uL RBC 5.23 (4.50-5.90) M/uL Hgb 16.7 (13.0-17.0) g/dL Hct 48.8 (38.0-50.0) % MCV 93.3 (80.0-98.0) fL MCH 31.9 (27.0-32.0) pg MCHC 34.2 (31.0-37.0) g/dL RDW Std Deviation 47.4 (28.0-62.0) fl RDW Coeff of Laura 14 (11.0-15.0) % Plt Count 252 (150-400) K/uL MPV 10.30 (7.40-12.00) fL Neut % (Auto) 87.1 H (48.0-80.0) % Lymph % (Auto) 7.9 L (16.0-40.0) % [place] % (Auto) 5.0 (0.0-15.0) % Eos % (Auto) 0.0 (0.0-7.0) % Baso % (Auto) 0.0 (0.0-1.5) % Neut # (Auto) 19.2 H (1.4-5.7) K/uL Lymph # (Auto) 1.8 (0.6-2.4) K/uL [place] # (Auto) 1.1 H (0.0-0.8) K/uL Eos # (Auto) 0.0 (0.0-0.7) K/uL Baso # (Auto) 0.0 (0.0-0.1) K/uL Nucleated RBC % 0.0 /100WBC Nucleated RBCs # 0 K/uL Sodium 138 (136-148) mmol/L Potassium 3.9 (3.5-5.1) mmol/L Chloride 100 (98-107) mmol/L Carbon Dioxide 26.1 (21.0-32.0) mmol/L BUN 20 H (7.0-18.0) mg/dL Creatinine 1.5 H (0.8-1.3) mg/dL Est Cr Clr Drug Dosing 54.94 mL/min Estimated GFR (MDRD) 50.2 ml/min Glucose 210 H (74-106) mg/dL Calcium 8.7 (8.5-10.1) mg/dL Med Orders - Current: Current Medications Albuterol (Proventil Neb Soln) 2.5 mg NEB Q6HRRT [facility] Last Admin: 03/31/19 11:10 Dose: 2.5 mg Fluticasone Propionate (Flonase) 1 gm NASBOTH DAILY [facility] Last Admin: 03/31/19 09:04 Dose: 1 spray Sodium Chloride (Normal Saline) 1,000 mls @ 125 mls/hr IV ASDIRECTED [facility] Last Admin: 03/31/19 13:39 Dose: 125 mls/hr Pantoprazole Sodium (Protonix) 40 mg PO DAILY [facility] Last Admin: 03/31/19 09:03 Dose: 40 mg Fluticasone/Salmeterol (Advair Diskus 250-50) 1 puff INH BID [facility] Last Admin: 03/31/19 09:24 Dose: 1 puff Sodium Chloride (Saline Flush) 10 ml FLUSH ASDIRECTED PRN PRN Reason: Keep Vein Open Sodium Chloride (Saline Flush) 2.5 ml FLUSH ASDIRECTED PRN PRN Reason: Keep Vein Open Discontinued Medications Albuterol (Proventil Neb Soln) 2.5 mg NEB ONETIME ONE Stop: 03/30/19 08:05 Last Admin: 03/30/19 08:30 Dose: 2.5 mg Iopamidol (Isovue Multipack-370 (76%)) 75 ml IVPUSH ONETIME STA Stop: 03/30/19 15:58 Last Admin: 03/30/19 16:09 Dose: 75 ml Methylprednisolone Sodium Succinate (Solu-Medrol) 125 mg IVPUSH ONETIME ONE Stop: 03/30/19 08:05 Last Admin: 03/30/19 08:10 Dose: 125 mg
[2019-03-31 15:51] VITALS: PULSE 100
[2019-03-31] MEDS ORDERED: guaiFENesin/Dextromethorphan 100-10 MG/5 ML Soln 10 ML Cup PO PRN (16:01)
[2019-03-31] MEDS ORDERED: Azithromycin 250 MG Tab PO ONE (16:30)
[2019-04-01] MEDS ORDERED: Azithromycin 250 MG Tab PO SCH (16:30)
== END 2019-03-31 17:30 | disposition home or self-care (01) ==
LOC: MW.ED 07:51 → MW.MS 10:02
PROVIDERS: ADMIT Internal Medicine; ATTEND Internal Medicine
DX: R55 Syncope and collapse (principal); J44.0 Chronic obstructive pulmonary disease with (acute) lower respiratory infection; J20.9 Acute bronchitis, unspecified; I10 Essential (primary) hypertension; F17.200 Nicotine dependence, unspecified, uncomplicated; G10 Huntington's disease; Z88.8 Allergy status to other drugs, medicaments and biological substances; Z79.899 Other long term (current) drug therapy
CPT/HCPCS: 36415; 70450; 70491; 71046; 71260; 73080; 80048; 80053; 81003; 84484; 85025; 93005; 94640; 96361; 96374; 99285; A9270; G0378; J2930; J7040; Q9967; 99283

== ENCOUNTER 2019-04-06 06:29 | Emergency (ER) | payer BC ==
--- NOTE | 2019-04-06 07:08 | EDM.PDOC ---
ED HPI GENERAL MEDICAL PROBLEM - General Chief Complaint: ENT Problem Stated Complaint: PT THINKS HE BROKE HIS NOSE Time Seen by Provider: 04/06/19 06:59 Source of Information: Reports: Patient History Limitations: Reports: No Limitations - History of Present Illness INITIAL COMMENTS - FREE TEXT/NARRATIVE: History of present illness: []Patient was hit in the nose one hour ago by his pit bull dog. He had no loss of consciousness and had brief bleeding but has since stopped. Nose is broken. Review of systems: As per history of present illness and below otherwise all systems reviewed and negative. Past medical history: As per history of present illness and as reviewed below otherwise noncontributory. Surgical history: As per history of present illness and as reviewed below otherwise noncontributory. Social history: No reported history of drug or alcohol abuse. Family history: As per history of present illness and as reviewed below otherwise noncontributory. Physical exam: General: Well developed, well nourished in NAD HEENT: Atraumatic, normocephalic, pupils reactive, negative for conjunctival pallor or scleral icterus, mucous membranes moist, throat clear, neck supple, nontender, trachea midline. Minimal swelling on the bridge of his nose, there is no septal hematoma, no active bleeding or drainage. Lungs: Clear to auscultation, breath sounds equal bilaterally, chest nontender. Heart: S1S2, regular, negative for clicks, rubs, or JVD. Abdomen: NABS, Soft, nondistended, nontender. Negative for masses or hepatosplenomegaly. Negative for costovertebral tenderness. Pelvis: Stable nontender. Genitourinary: Deferred. Rectal: Deferred. Extremities: Atraumatic, negative for cords or calf pain. Neurovascular unremarkable. Neuro: Awake, alert, oriented. Cranial nerves II through XII unremarkable. Cerebellum unremarkable. Motor and sensory unremarkable throughout. Exam nonfocal. Skin:warm and dry Diagnostics: None Therapeutics: None ED Course: Stable Impression: Nasal trauma Prescriptions: None Plan: Ice to nose, follow-up with ENT in 1-2 weeks if there is a residual deformity Definitive disposition and diagnosis as appropriate pending reevaluation and review of above. Nose Pain Score (Numeric/FACES): 5 - Related Data Allergies Allergy/AdvReac Type Severity Reaction Status Date / Time tetrabenazine Allergy Severe Other Verified 04/06/19 06:48 umeclidinium Allergy Severe Swollen Verified 04/06/19 06:48 [From Incruse Ellipta] Tongue Home Meds: Home Meds Albuterol [Proventil] 2.5 mg IH Q8HR PRN 30 Days #1 inhaler 03/31/19 [Rx] Fluticasone Propionate [Flonase] 1 gm NASBOTH DAILY 10 Days #1 bottle 03/31/19 [ Rx] Fluticasone/Salmeterol [Advair 250-50] 1 puff INH BID 30 Days #1 diskus [Rx] Pantoprazole Sodium 40 mg PO ACBREAKFAST #30 tablet. 03/31/19 [Rx] Past Medical History - Past Health History Medical/Surgical History: Denies Medical/Surgical History HEENT History: Reports: Impaired Vision Cardiovascular History: Reports: Hypertension Respiratory History: Reports: COPD Gastrointestinal History: Reports: None Genitourinary History: Reports: None Musculoskeletal History: Reports: None Neurological History: Reports: Other (See Below) Other Neuro History: Tchula disease Psychiatric History: Reports: None Endocrine/Metabolic History: Reports: None Hematologic History: Reports: None Immunologic History: Reports: None Oncologic (Cancer) History: Reports: None Dermatologic History: Reports: None - Infectious Disease History Infectious Disease History: Reports: Chicken Pox - Past Surgical History Head Surgeries/Procedures: Reports: None HEENT Surgical History: Reports: None Cardiovascular Surgical History: Reports: None Respiratory Surgical History: Reports: None GI Surgical History: Reports: None Male Surgical History: Reports: None Endocrine Surgical History: Reports: None Neurological Surgical History: Reports: None Musculoskeletal Surgical History: Reports: None Oncologic Surgical History: Reports: None Dermatological Surgical History: Reports: None Social & Family History - Family History Family Medical History: Noncontributory - Tobacco Use Smoking Status *Q: Current Every Day Smoker Years of Tobacco use: 35 Packs/Tins Daily: 1 - Caffeine Use Caffeine Use: Reports: Soda - Recreational Drug Use Recreational Drug Use: No ED ROS ENT - Review of Systems Review Of Systems: See Below ED EXAM, ENT - Physical Exam Exam: See Below Course - Vital Signs Last Recorded V/S: Last Vital Signs Temp 97.4 F 04/06/19 06:45 Pulse 97 04/06/19 06:45 Resp 18 04/06/19 06:45 BP 141/96 H 04/06/19 06:45 Pulse Ox 94 L 04/06/19 06:45 Departure - Departure Time of Disposition: 07:07 Disposition: Home, Self-Care 01 Condition: Good Clinical Impression: Nasal trauma Qualifiers: Encounter type: initial encounter Qualified Code(s): S09.92XA - Unspecified injury of nose, initial encounter - Discharge Information *PRESCRIPTION DRUG MONITORING PROGRAM REVIEWED*: No *COPY OF PRESCRIPTION DRUG MONITORING REPORT IN PATIENT ANGEL: No Referrals: Kirsten Ochoa MD [Primary Care Provider] - Additional Instructions: The following information is given to patients seen in the emergency department who are being discharged to home. This information is to outline your options for follow-up care. We provide all patients seen in our emergency department with a follow-up referral. The need for follow-up, as well as the timing and circumstances, are variable depending upon the specifics of your emergency department visit. If you don't have a primary care physician on staff, we will provide you with a referral. We always advise you to contact your personal physician following an emergency department visit to inform them of the circumstance of the visit and for follow-up with them and/or the need for any referrals to a consulting specialist. The emergency department will also refer you to a specialist when appropriate. This referral assures that you have the opportunity for follow-up care with a specialist. All of these measure are taken in an effort to provide you with optimal care, which includes your follow-up. Under all circumstances we always encourage you to contact your private physician who remains a resource for coordinating your care. When calling for follow-up care, please make the office aware that this follow-up is from your recent emergency room visit. If for any reason you are refused follow-up, please contact the [facility] Emergency Department at and asked to speak to the emergency department charge nurse. Use ice and ibuprofen as directed, follow up with your primary care physician, return to ER if symptoms worsen or change. [facility] [address] [place] [id number]
[2019-04-06 07:22] VITALS: BP 150/90; PULSE 88
== END 2019-04-06 07:22 | disposition home or self-care (01) ==
LOC: MW.ED 06:29
DX: S09.92XA Unspecified injury of nose, initial encounter (principal); J44.9 Chronic obstructive pulmonary disease, unspecified; I10 Essential (primary) hypertension; Z88.8 Allergy status to other drugs, medicaments and biological substances; Z79.899 Other long term (current) drug therapy; W54.1XXA Struck by dog, initial encounter
CPT/HCPCS: 99282; 99283

== ENCOUNTER 2019-04-10 20:37 | Emergency (ER) | payer BC ==
--- NOTE | 2019-04-10 20:38 | EDM.PDOC ---
ED HPI GENERAL MEDICAL PROBLEM - General Stated Complaint: PT FEELS LIKE HE IS GOING TO PASS OUT Time Seen by Provider: 04/10/19 20:37 Source of Information: Reports: Patient History Limitations: Reports: No Limitations - History of Present Illness INITIAL COMMENTS - FREE TEXT/NARRATIVE: HISTORY AND PHYSICAL: History of present illness: Patient is a 48-year-old male who presents to the emergency room with complaints of near syncope prior to arrival. Patient states he had a coughing spell and felt tremulous which got to the point where he felt like he was given a pass out. He states he has been having episodes like this over the past 2 years, worse over the past 2-3 months. He was recently admitted on 03/30/2019 due to these symptoms. Patient reports he was placed on a Z-Richard and discharged to home.. 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 Patient did see Dr. 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 Patient denies any fever, chills , headache, change in vision, syncope or near syncope. Denies any chest pain, back pain, shortness of breath or cough. Denies any abdominal pain, nausea, vomiting, diarrhea, constipation or dysuria. Has not noted any blood in urine or stool. Patient has been eating and drinking appropriately. Review of systems: As per history of present illness and below otherwise all systems reviewed and negative. Past medical history: As per history of present illness and as reviewed below otherwise noncontributory. Surgical history: As per history of present illness and as reviewed below otherwise noncontributory. Social history: See social history for further information Family history: As per history of present illness and as reviewed below otherwise noncontributory. Physical exam: General: Well developed and well nourished 48-year-old male. Alert and oriented. Nontoxic appearing and in no acute distress. HEENT: Atraumatic, normocephalic, pupils equal and reactive bilaterally, negative for conjunctival pallor or scleral icterus, mucous membranes moist, TMs normal bilaterally, throat clear, neck supple, nontender, trachea midline. No drooling or trismus noted. No meningeal signs. No hot potato voice noted. Lungs: Fine expiratory wheezing noted throughout, breath sounds equal bilaterally, chest nontender. Heart: S1S2, regular rate and rhythm without overt murmur Abdomen: Soft, nondistended, nontender. Negative for masses or hepatosplenomegaly. Negative for costovertebral tenderness. Pelvis: Stable nontender. Skin: Intact, warm, dry. No lesions or rashes noted. Extremities: Atraumatic, moves all extremities per self without difficulty or deficits, negative for cords or calf pain. Neurovascular unremarkable. Neuro: Awake, alert, oriented. Cranial nerves II through XII unremarkable. Cerebellum unremarkable. Motor and sensory unremarkable throughout. Exam nonfocal. Notes: Head CT is normal. Chest x-ray shows no acute findings. The maxillofacial imaging shows an acute minimally displaced left nasal bone fracture. No orbital fracture. No retrobulbar hematoma or post-septal soft tissue swelling. Mild paranasal sinus inflammatory changes. Multiple absent teeth. Lab work is unremarkable. Patient reports that he's been asymptomatic while here in the emergency room. We did discuss his diagnostics and the disease progression of COPD and Tonya's. He states that he would like to try some Phenergan With Codeine to help alleviate/suppress the coughing fits. Supportive care measures were reviewed and discussed. Voices understanding and is agreeable to plan of care. Denies any further questions or concerns at this time. Diagnostics: CBC, CMP, UA, Troponin, EKG, Head CT, CXR Therapeutics: IV fluids Prescription: Phenergan with codeine (No. 4 ounces) Impression: Near Syncope History of COPD Plan: 1. Follow up with your primary care provider for further evaluation of these coughing episodes, medications may need to be adjusted. 2. Return to the ED as needed and as discussed. Definitive disposition and diagnosis as appropriate pending reevaluation and review of above. - Related Data Allergies Allergy/AdvReac Type Severity Reaction Status Date / Time tetrabenazine Allergy Severe Other Verified 04/10/19 20:55 umeclidinium Allergy Severe Swollen Verified 04/10/19 20:55 [From Incruse Ellipta] Tongue Home Meds: Home Meds Albuterol [Proventil] 2.5 mg IH Q8HR PRN 30 Days #1 inhaler 03/31/19 [Rx] Fluticasone/Salmeterol [Advair 250-50] 1 puff INH BID 30 Days #1 diskus [Rx] ARIPiprazole [Abilify Mycite] 5 mg PO DAILY 04/10/19 [History] Past Medical History - Past Health History Medical/Surgical History: Denies Medical/Surgical History HEENT History: Reports: Impaired Vision Cardiovascular History: Reports: Hypertension Respiratory History: Reports: COPD Gastrointestinal History: Reports: None Genitourinary History: Reports: None Musculoskeletal History: Reports: None Neurological History: Reports: Other (See Below) Other Neuro History: Flanagan disease Psychiatric History: Reports: None Endocrine/Metabolic History: Reports: None Hematologic History: Reports: None Immunologic History: Reports: None Oncologic (Cancer) History: Reports: None Dermatologic History: Reports: None - Infectious Disease History Infectious Disease History: Reports: Chicken Pox - Past Surgical History Head Surgeries/Procedures: Reports: None HEENT Surgical History: Reports: None Cardiovascular Surgical History: Reports: None Respiratory Surgical History: Reports: None GI Surgical History: Reports: None Male Surgical History: Reports: None Endocrine Surgical History: Reports: None Neurological Surgical History: Reports: None Musculoskeletal Surgical History: Reports: None Oncologic Surgical History: Reports: None Dermatological Surgical History: Reports: None Social & Family History - Family History Family Medical History: Noncontributory - Caffeine Use Caffeine Use: Reports: Soda ED ROS GENERAL - Review of Systems Review Of Systems: ROS reveals no pertinent complaints other than HPI. ED EXAM, GENERAL - Physical Exam Exam: See Below (See dictation) Course - Vital Signs Last Recorded V/S: Last Vital Signs Temp 96 F 04/10/19 20:40 Pulse 103 H 04/10/19 20:40 Resp 18 04/10/19 20:40 BP 158/104 H 04/10/19 20:40 Pulse Ox 95 04/10/19 20:40 Orthostatic Blood Pressure [ 132/93 Standing] Orthostatic Blood Pressure [ 128/82 Sitting] Orthostatic Blood Pressure [ 138/78 Supine] - Orders/Labs/Meds Orders: Active Orders 24 hr Category Date Time Status EKG Documentation Completion [RC] STAT Care 04/10/19 20:39 Active Orthostatic Vital Signs [RC] ASDIRECTED Care 04/10/19 20:39 Active Sodium Chloride 0.9% [Normal Saline] 1,000 ml Med 04/10/19 20:39 Active IV STAT Medication Orders Sodium Chloride (Normal Saline) 1,000 mls @ 999 mls/hr IV STAT ONE Stop: 04/10/19 21:39 Last Admin: 04/10/19 21:08 Dose: 999 mls/hr Labs: Laboratory Tests 04/10/19 04/10/19 04/10/19 Range/Units 20:50 20:50 20:50 WBC 8.64 (4.0-11.0) K/uL RBC 4.89 (4.50-5.90) M/uL Hgb 15.7 (13.0-17.0) g/dL Hct 46.0 (38.0-50.0) % MCV 94.1 (80.0-98.0) fL MCH 32.1 H (27.0-32.0) pg MCHC 34.1 (31.0-37.0) g/dL RDW Std Deviation 47.7 (28.0-62.0) fl RDW Coeff of Laura 14 (11.0-15.0) % Plt Count 229 (150-400) K/uL MPV 9.90 (7.40-12.00) fL Neut % (Auto) 62.4 (48.0-80.0) % Lymph % (Auto) 27.8 (16.0-40.0) % Wayne % (Auto) 5.6 (0.0-15.0) % Eos % (Auto) 3.7 (0.0-7.0) % Baso % (Auto) 0.5 (0.0-1.5) % Neut # (Auto) 5.4 (1.4-5.7) K/uL Lymph # (Auto) 2.4 (0.6-2.4) K/uL Wayne # (Auto) 0.5 (0.0-0.8) K/uL Eos # (Auto) 0.3 (0.0-0.7) K/uL Baso # (Auto) 0.0 (0.0-0.1) K/uL Nucleated RBC % 0.0 /100WBC Nucleated RBCs # 0 K/uL Sodium 141 (136-148) mmol/L Potassium 3.9 (3.5-5.1) mmol/L Chloride 104 (98-107) mmol/L Carbon Dioxide 29.7 (21.0-32.0) mmol/L BUN 12 (7.0-18.0) mg/dL Creatinine 1.3 (0.8-1.3) mg/dL Est Cr Clr Drug Dosing 63.39 mL/min Estimated GFR (MDRD) 59.2 ml/min Glucose 133 H (74-106) mg/dL Calcium 8.7 (8.5-10.1) mg/dL Total Bilirubin 0.5 (0.2-1.0) mg/dL AST 31 (15-37) IU/L ALT 52 (14-63) IU/L Alkaline Phosphatase 83 (46-116) U/L Troponin I < 0.050 (0.000-0.056) ng/mL Total Protein 7.1 (6.4-8.2) g/dL Albumin 3.4 (3.4-5.0) g/dL Globulin 3.7 (2.6-4.0) g/dL Albumin/Globulin Ratio 0.9 (0.9-1.6) TSH 3rd Generation 1.91 (0.36-3.74) uIU/mL Urine Color Urine Appearance Urine pH (5.0-8.0) Ur Specific [place] (1.001-1.035) Urine Protein (NEGATIVE) mg/dL Urine Glucose (UA) (NEGATIVE) mg/dL Urine Ketones (NEGATIVE) mg/dL Urine Occult Blood (NEGATIVE) Urine Nitrite (NEGATIVE) Urine Bilirubin (NEGATIVE) Urine Urobilinogen (<2.0) EU/dL Ur Leukocyte Esterase (NEGATIVE) 04/10/19 Range/Units 21:02 WBC (4.0-11.0) K/uL RBC (4.50-5.90) M/uL Hgb (13.0-17.0) g/dL Hct (38.0-50.0) % MCV (80.0-98.0) fL MCH (27.0-32.0) pg MCHC (31.0-37.0) g/dL RDW Std Deviation (28.0-62.0) fl RDW Coeff of Laura (11.0-15.0) % Plt Count (150-400) K/uL MPV (7.40-12.00) fL Neut % (Auto) (48.0-80.0) % Lymph % (Auto) (16.0-40.0) % Wayne % (Auto) (0.0-15.0) % Eos % (Auto) (0.0-7.0) % Baso % (Auto) (0.0-1.5) % Neut # (Auto) (1.4-5.7) K/uL Lymph # (Auto) (0.6-2.4) K/uL Wayne # (Auto) (0.0-0.8) K/uL Eos # (Auto) (0.0-0.7) K/uL Baso # (Auto) (0.0-0.1) K/uL Nucleated RBC % /100WBC Nucleated RBCs # K/uL Sodium (136-148) mmol/L Potassium (3.5-5.1) mmol/L Chloride (98-107) mmol/L Carbon Dioxide (21.0-32.0) mmol/L BUN (7.0-18.0) mg/dL Creatinine (0.8-1.3) mg/dL Est Cr Clr Drug Dosing mL/min Estimated GFR (MDRD) ml/min Glucose (74-106) mg/dL Calcium (8.5-10.1) mg/dL Total Bilirubin (0.2-1.0) mg/dL AST (15-37) IU/L ALT (14-63) IU/L Alkaline Phosphatase (46-116) U/L Troponin I (0.000-0.056) ng/mL Total Protein (6.4-8.2) g/dL Albumin (3.4-5.0) g/dL Globulin (2.6-4.0) g/dL Albumin/Globulin Ratio (0.9-1.6) TSH 3rd Generation (0.36-3.74) uIU/mL Urine Color YELLOW Urine Appearance CLEAR Urine pH 6.0 (5.0-8.0) Ur Specific [place] >= 1.030 (1.001-1.035) Urine Protein NEGATIVE (NEGATIVE) mg/dL Urine Glucose (UA) NEGATIVE (NEGATIVE) mg/dL Urine Ketones NEGATIVE (NEGATIVE) mg/dL Urine Occult Blood NEGATIVE (NEGATIVE) Urine Nitrite NEGATIVE (NEGATIVE) Urine Bilirubin NEGATIVE (NEGATIVE) Urine Urobilinogen 0.2 (<2.0) EU/dL Ur Leukocyte Esterase NEGATIVE (NEGATIVE) Meds: Medications Generic Name Dose Route Start Last Admin Trade Name Freq PRN Reason Stop Dose Admin Sodium Chloride 1,000 mls @ 999 mls/hr 04/10/19 20:39 04/10/19 21:08 Normal Saline IV 04/10/19 21:39 999 mls/hr STAT ONE Administration Departure - Departure Time of Disposition: 21:56 Disposition: Home, Self-Care 01 Clinical Impression: Near syncope, History of COPD - Discharge Information Referrals: PCP,None [Primary Care Provider] - Additional Instructions: The following information is given to patients seen in the emergency department who are being discharged to home. This information is to outline your options for follow-up care. We provide all patients seen in our emergency department with a follow-up referral. The need for follow-up, as well as the timing and circumstances, are variable depending upon the specifics of your emergency department visit. If you don't have a primary care physician on staff, we will provide you with a referral. We always advise you to contact your personal physician following an emergency department visit to inform them of the circumstance of the visit and for follow-up with them and/or the need for any referrals to a consulting specialist. The emergency department will also refer you to a specialist when appropriate. This referral assures that you have the opportunity for follow-up care with a specialist. All of these measure are taken in an effort to provide you with optimal care, which includes your follow-up. Under all circumstances we always encourage you to contact your private physician who remains a resource for coordinating your care. When calling for follow-up care, please make the office aware that this follow-up is from your recent emergency room visit. If for any reason you are refused follow-up, please contact the [facility] Emergency Department at and asked to speak to the emergency department charge nurse. [facility] [address] [place] [id number] [facility] [address] [place] [id number] 1. Follow up with your primary care provider for further evaluation of these coughing episodes, medications may need to be adjusted. 2. Return to the ED as needed and as discussed. - My Orders Last 24 Hours: My Active Orders 04/10/19 20:39 EKG Documentation Completion [RC] STAT Orthostatic Vital Signs [RC] ASDIRECTED Sodium Chloride 0.9% [Normal Saline] 1,000 ml IV STAT - Assessment/Plan Last 24 Hours: My Active Orders 04/10/19 20:39 EKG Documentation Completion [RC] STAT Orthostatic Vital Signs [RC] ASDIRECTED Sodium Chloride 0.9% [Normal Saline] 1,000 ml IV STAT
[2019-04-10] MEDS ORDERED: Sodium Chloride 0.9% 1,000 ML IV ONE (20:39)
--- NOTE | 2019-04-10 21:14 | CR ---
HISTORY: Near syncope. TECHNIQUE: One view of the chest. COMPARISON: 03/30/2019. FINDINGS: Cardiac size within normal limits. There is no acute lung infiltrate or pulmonary edema. No pneumothorax or pleural effusion. No acute bony abnormality. IMPRESSION: No acute disease. Dictated by Joseph Shah MD @ 04/10/2019 9:12:24 PM Dictated by: Joseph Shah MD @ 04/10/2019 21:12:27 (Electronically Signed)
--- NOTE | 2019-04-10 21:16 | CT ---
HISTORY: Near syncope. TECHNIQUE: Noncontrast head CT. COMPARISON: 03/30/2019. FINDINGS: No acute ischemic infarct or acute intracranial hemorrhage. No mass effect or midline shift. No hydrocephalus. No extra-axial collection or hematoma. No acute loss of aranda-white differentiation. The mastoid air cells are clear. Mucosal thickening involving multiple ethmoid air cells and the left sphenoid sinus. There is no acute skull fracture. IMPRESSION: No acute intracranial disease or injury. Dictated by Joseph Shah MD @ 04/10/2019 9:15:02 PM Please note that all CT scans at this facility use dose modulation, iterative reconstruction, and/or weight-based dosing when appropriate to reduce radiation dose to as low as reasonably achievable. Dictated by: Joseph Shah MD @ 04/10/2019 21:15:07 (Electronically Signed)
--- NOTE | 2019-04-10 21:23 | CT ---
HISTORY: Near syncope. Possible nasal bone fracture. TECHNIQUE: Noncontrast CT of the facial bones. COMPARISON: Head CT 03/30/2019. FINDINGS: There is an acute minimally displaced fracture of the left nasal bone as seen on image #67 of series 205 demonstrating 1-2 mm displacement. There is no orbital fracture or maxillary fracture. Partial opacification and mucosal thickening involving a few ethmoid air cells. Mucosal thickening involving left sphenoid sinus. Mild mucosal thickening involving the maxillary sinuses. No acute mandibular fracture. Several absent teeth. There is periapical lucency associated with residual fragments of the right upper 1st and 2nd molar teeth. 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 No retrobulbar hematoma or postseptal soft tissue swelling involving either orbit. IMPRESSION: 1. Acute minimally displaced left nasal bone fracture. 2. No orbital fracture. No retrobulbar hematoma or postseptal soft tissue swelling. 3. Mild paranasal sinus inflammatory changes. 4. Multiple absent teeth. Periapical lucency associated with residual fragments of the right upper 1st and 2nd molar teeth. 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 Dictated by Joseph Shah MD @ 04/10/2019 9:21:12 PM Please note that all CT scans at this facility use dose modulation, iterative reconstruction, and/or weight-based dosing when appropriate to reduce radiation dose to as low as reasonably achievable. Dictated by: Joseph Shah MD @ 04/10/2019 21:21:20 (Electronically Signed)
[2019-04-10 21:25] LABS: BLOOD UREA NITROGEN,BUN 12 mg/dL (7.0-18.0); CARBON DIOXIDE,CO2 29.7 mmol/L (21.0-32.0); CHLORIDE,CL 104 mmol/L (98-107); GLUCOSE RANDOM 133 mg/dL (74-106); POTASSIUM,K 3.9 mmol/L (3.5-5.1); SODIUM,NA 141 mmol/L (136-148)
[2019-04-10] MEDS ORDERED: Codeine/Promethazine 10-6.25 MG/5 ML Syrup 5 ML UD Cup PO STA (21:57)
[2019-04-10 22:15] VITALS: BP 125/77; PULSE 92
== END 2019-04-10 22:15 | disposition home or self-care (01) ==
LOC: MW.ED 20:37
DX: R55 Syncope and collapse (principal); J44.9 Chronic obstructive pulmonary disease, unspecified; I10 Essential (primary) hypertension; Z79.899 Other long term (current) drug therapy; Z88.8 Allergy status to other drugs, medicaments and biological substances
CPT/HCPCS: 36415; 70450; 70486; 71045; 80053; 81003; 84443; 84484; 85025; 93005; 96360; 99284; A9270; J7040

== ENCOUNTER 2019-04-23 07:19 | Emergency (ER) | payer BC ==
[2019-04-23] MEDS ORDERED: Sodium Chloride 0.9% 1,000 ML IV ONE (07:26)
[2019-04-23] MEDS ORDERED: Ketorolac 30 MG/ML SDV IVPUSH ONE (07:29)
[2019-04-23 08:14] LABS: BLOOD UREA NITROGEN,BUN 12 mg/dL (7.0-18.0); CHLORIDE,CL 102 mmol/L (98-107); GLUCOSE RANDOM 125 mg/dL (74-106); SODIUM,NA 137 mmol/L (136-148)
--- NOTE | 2019-04-23 08:22 | CT ---
INDICATION: Body aches since 3 a.m. TECHNIQUE: CT of the abdomen and pelvis performed without oral or IV contrast. FINDINGS: Small lucencies involving the right femoral head benign. 3 cm fat containing left inguinal hernia. No acute disease in the abdomen or pelvis. Moderate diffuse fatty infiltration of liver with focal fatty sparing greatest adjacent to gallbladder. Very small fat containing anterior pelvic wall hernia. Minimal interstitial prominence in the lung bases benign. Mildly prominent portacaval lymph node is a lymph node that can be normally mildly prominent. Remainder negative. IMPRESSION: 1. No acute disease in abdomen or pelvis. 2. Fat containing left inguinal and periumbilical anterior pelvic wall hernias. Other findings as above. Please note that all CT scans at this facility use dose modulation, iterative reconstruction, and/or weight-based dosing when appropriate to reduce radiation dose to as low as reasonably achievable. Dictated by Owen Trujillo MD @ Apr 23 2019 8:20AM Signed by Dr. Owen Trujillo @ Apr 23 2019 8:20AM
--- NOTE | 2019-04-23 08:38 | EDM.PDOC ---
ED HPI GENERAL MEDICAL PROBLEM - General Chief Complaint: General Stated Complaint: CHEST PAIN Time Seen by Provider: 04/23/19 08:34 Source of Information: Reports: Patient - History of Present Illness INITIAL COMMENTS - FREE TEXT/NARRATIVE: HISTORY AND PHYSICAL: History of present illness: [Deb hall's initial stated complaint was chest pain However he denies chest pain at this time he has low back pain 8 out of 10 nonradiating] worsened by movement/walking footdrop saddle anesthesia bowel or urine symptoms He has been treated with an unknown antibiotic for urinary tract infection, with the sharp onset of low back pain with did check for kidney stone with his recent infection however he is clear of infection as well as no renal stone no other acute findings on CT without contrast Pain is limited to the low back paraspinous muscles left greater than right and reproducible with palpation He has no fever nausea vomiting chills sweats no chest pain shortness breath headache dizziness palpitation no bowel or urine symptoms Review of systems: As per history of present illness and below otherwise all systems reviewed and negative. Past medical history: As per history of present illness and as reviewed below otherwise noncontributory. Surgical history: As per history of present illness and as reviewed below otherwise noncontributory. Social history: No reported history of drug or alcohol abuse. Family history: As per history of present illness and as reviewed below otherwise noncontributory. Physical exam: HEENT: Atraumatic, normocephalic, pupils reactive, negative for conjunctival pallor or scleral icterus, mucous membranes moist, throat clear, neck supple, nontender, trachea midline. Lungs: Clear to auscultation, breath sounds equal bilaterally, chest nontender. Heart: S1S2, regular, negative for clicks, rubs, or JVD. Abdomen: Soft, nondistended, nontender. Negative for masses or hepatosplenomegaly. Negative for costovertebral tenderness. Pelvis: Stable nontender. Genitourinary: Deferred. Rectal: Deferred. Extremities: Atraumatic, negative for cords or calf pain. Neurovascular unremarkable. Neuro: Awake, alert, oriented. Cranial nerves II through XII unremarkable. Cerebellum unremarkable. Motor and sensory unremarkable throughout. Exam nonfocal. Diagnostics: [ TBC CMP UA troponin lipase EKG CT abdomen no contrast ] Therapeutics: [ normal saline Toradol Toradol Flexeril ] Impression: [ low back pain Paraspinous muscle spasm ] Definitive disposition and diagnosis as appropriate pending reevaluation and review of above. generalized Pain Score (Numeric/FACES): 8 - Related Data Allergies Allergy/AdvReac Type Severity Reaction Status Date / Time tetrabenazine Allergy Severe Other Verified 04/23/19 07:27 umeclidinium Allergy Severe Swollen Verified 04/23/19 07:27 [From Incruse Ellipta] Tongue Home Meds: Home Meds Albuterol [Proventil] 2.5 mg IH Q8HR PRN 30 Days #1 inhaler 03/31/19 [Rx] Fluticasone/Salmeterol [Advair 250-50] 1 puff INH BID 30 Days #1 diskus [Rx] ARIPiprazole [Abilify Mycite] 5 mg PO DAILY 04/10/19 [History] Past Medical History - Past Health History Medical/Surgical History: Denies Medical/Surgical History HEENT History: Reports: Impaired Vision Cardiovascular History: Reports: Hypertension Respiratory History: Reports: COPD Gastrointestinal History: Reports: None Genitourinary History: Reports: None Musculoskeletal History: Reports: None Neurological History: Reports: Other (See Below) Other Neuro History: [place] disease Psychiatric History: Reports: None Endocrine/Metabolic History: Reports: None Hematologic History: Reports: None Immunologic History: Reports: None Oncologic (Cancer) History: Reports: None Dermatologic History: Reports: None - Infectious Disease History Infectious Disease History: Reports: Chicken Pox - Past Surgical History Head Surgeries/Procedures: Reports: None HEENT Surgical History: Reports: None Cardiovascular Surgical History: Reports: None Respiratory Surgical History: Reports: None GI Surgical History: Reports: None Male Surgical History: Reports: None Endocrine Surgical History: Reports: None Neurological Surgical History: Reports: None Musculoskeletal Surgical History: Reports: None Oncologic Surgical History: Reports: None Dermatological Surgical History: Reports: None Social & Family History - Family History Family Medical History: Noncontributory - Tobacco Use Smoking Status *Q: Current Every Day Smoker Years of Tobacco use: 35 Packs/Tins Daily: 1 - Caffeine Use Caffeine Use: Reports: Soda - Recreational Drug Use Recreational Drug Use: No ED ROS GENERAL - Review of Systems Review Of Systems: See Below ED EXAM, GENERAL - Physical Exam Exam: See Below Course - Vital Signs Last Recorded V/S: Last Vital Signs Temp 96 F 04/23/19 07:25 Pulse 90 04/23/19 08:18 Resp 18 04/23/19 08:18 BP 147/93 H 04/23/19 08:18 Pulse Ox 97 04/23/19 08:18 - Orders/Labs/Meds Orders: Active Orders 24 hr Category Date Time Status EKG Documentation Completion [RC] STAT Care 04/23/19 07:26 Active Labs: Laboratory Tests 04/23/19 04/23/19 04/23/19 Range/Units 07:40 07:40 07:40 WBC 11.01 H (4.0-11.0) K/uL RBC 5.01 (4.50-5.90) M/uL Hgb 15.7 (13.0-17.0) g/dL Hct 48.2 (38.0-50.0) % MCV 96.2 (80.0-98.0) fL MCH 31.3 (27.0-32.0) pg MCHC 32.6 (31.0-37.0) g/dL RDW Std Deviation 50.3 (28.0-62.0) fl RDW Coeff of Laura 14 (11.0-15.0) % Plt Count 186 (150-400) K/uL MPV 10.30 (7.40-12.00) fL Add Manual Diff YES Neutrophils % (Manual) 78 (48.0-80.0) % Lymphocytes % (Manual) 16 (16.0-40.0) % Monocytes % (Manual) 5 (0.0-15.0) % Metamyelocytes % 1 % Nucleated RBC % 0.0 /100WBC Absolute Seg Neuts 8.6 H (1.4-5.7) Lymphocytes # (Manual) 1.8 (0.6-2.4) Monocytes # (Manual) 0.6 (0.0-0.8) Absolute Metamyelocyte 0.1 Nucleated RBCs # 0 K/uL Sodium 137 (136-148) mmol/L Potassium 4.0 (3.5-5.1) mmol/L Chloride 102 (98-107) mmol/L Carbon Dioxide 28.0 (21.0-32.0) mmol/L BUN 12 (7.0-18.0) mg/dL Creatinine 1.1 (0.8-1.3) mg/dL Est Cr Clr Drug Dosing 74.92 mL/min Estimated GFR (MDRD) > 60.0 ml/min Glucose 125 H (74-106) mg/dL Calcium 8.3 L (8.5-10.1) mg/dL Total Bilirubin 0.3 (0.2-1.0) mg/dL AST 24 (15-37) IU/L ALT 59 (14-63) IU/L Alkaline Phosphatase 69 (46-116) U/L Troponin I < 0.050 (0.000-0.056) ng/mL Total Protein 6.6 (6.4-8.2) g/dL Albumin 3.2 L (3.4-5.0) g/dL Globulin 3.4 (2.6-4.0) g/dL Albumin/Globulin Ratio 0.9 (0.9-1.6) Lipase 174 (73-393) U/L Urine Color Urine Appearance Urine pH (5.0-8.0) Ur Specific Palmer (1.001-1.035) Urine Protein (NEGATIVE) mg/dL Urine Glucose (UA) (NEGATIVE) mg/dL Urine Ketones (NEGATIVE) mg/dL Urine Occult Blood (NEGATIVE) Urine Nitrite (NEGATIVE) Urine Bilirubin (NEGATIVE) Urine Urobilinogen (<2.0) EU/dL Ur Leukocyte Esterase (NEGATIVE) 04/23/19 Range/Units 07:56 WBC (4.0-11.0) K/uL RBC (4.50-5.90) M/uL Hgb (13.0-17.0) g/dL Hct (38.0-50.0) % MCV (80.0-98.0) fL MCH (27.0-32.0) pg MCHC (31.0-37.0) g/dL RDW Std Deviation (28.0-62.0) fl RDW Coeff of Laura (11.0-15.0) % Plt Count (150-400) K/uL MPV (7.40-12.00) fL Add Manual Diff Neutrophils % (Manual) (48.0-80.0) % Lymphocytes % (Manual) (16.0-40.0) % Monocytes % (Manual) (0.0-15.0) % Metamyelocytes % % Nucleated RBC % /100WBC Absolute Seg Neuts (1.4-5.7) Lymphocytes # (Manual) (0.6-2.4) Monocytes # (Manual) (0.0-0.8) Absolute Metamyelocyte Nucleated RBCs # K/uL Sodium (136-148) mmol/L Potassium (3.5-5.1) mmol/L Chloride (98-107) mmol/L Carbon Dioxide (21.0-32.0) mmol/L BUN (7.0-18.0) mg/dL Creatinine (0.8-1.3) mg/dL Est Cr Clr Drug Dosing mL/min Estimated GFR (MDRD) ml/min Glucose (74-106) mg/dL Calcium (8.5-10.1) mg/dL Total Bilirubin (0.2-1.0) mg/dL AST (15-37) IU/L ALT (14-63) IU/L Alkaline Phosphatase (46-116) U/L Troponin I (0.000-0.056) ng/mL Total Protein (6.4-8.2) g/dL Albumin (3.4-5.0) g/dL Globulin (2.6-4.0) g/dL Albumin/Globulin Ratio (0.9-1.6) Lipase (73-393) U/L Urine Color YELLOW Urine Appearance CLEAR Urine pH 7.5 (5.0-8.0) Ur Specific Palmer 1.020 (1.001-1.035) Urine Protein NEGATIVE (NEGATIVE) mg/dL Urine Glucose (UA) NEGATIVE (NEGATIVE) mg/dL Urine Ketones NEGATIVE (NEGATIVE) mg/dL Urine Occult Blood NEGATIVE (NEGATIVE) Urine Nitrite NEGATIVE (NEGATIVE) Urine Bilirubin NEGATIVE (NEGATIVE) Urine Urobilinogen 0.2 (<2.0) EU/dL Ur Leukocyte Esterase NEGATIVE (NEGATIVE) Meds: Medications Discontinued Medications Generic Name Dose Route Start Last Admin Trade Name Freq PRN Reason Stop Dose Admin Sodium Chloride 1,000 mls @ 999 mls/hr 04/23/19 07:26 04/23/19 07:35 Normal Saline IV 04/23/19 08:26 999 mls/hr STAT ONE Administration Ketorolac Tromethamine 30 mg 04/23/19 07:29 04/23/19 07:37 Toradol IVPUSH 04/23/19 07:30 30 mg ONETIME ONE Administration Departure - Departure Time of Disposition: 08:37 Disposition: Home, Self-Care 01 Condition: Good Clinical Impression: Low back pain, Spasm of lumbar paraspinous muscle - Discharge Information Referrals: PCP,None [Primary Care Provider] - Additional Instructions: The following information is given to patients seen in the emergency department who are being discharged to home. This information is to outline your options for follow-up care. We provide all patients seen in our emergency department with a follow-up referral. The need for follow-up, as well as the timing and circumstances, are variable depending upon the specifics of your emergency department visit. If you don't have a primary care physician on staff, we will provide you with a referral. We always advise you to contact your personal physician following an emergency department visit to inform them of the circumstance of the visit and for follow-up with them and/or the need for any referrals to a consulting specialist. The emergency department will also refer you to a specialist when appropriate. This referral assures that you have the opportunity for follow-up care with a specialist. All of these measure are taken in an effort to provide you with optimal care, which includes your follow-up. Under all circumstances we always encourage you to contact your private physician who remains a resource for coordinating your care. When calling for follow-up care, please make the office aware that this follow-up is from your recent emergency room visit. If for any reason you are refused follow-up, please contact the [facility] emergency department at and asked to speak to the emergency department charge nurse. - My Orders Last 24 Hours: My Active Orders 04/23/19 07:26 EKG Documentation Completion [RC] STAT - Assessment/Plan Last 24 Hours: My Active Orders 04/23/19 07:26 EKG Documentation Completion [RC] STAT
[2019-04-23 09:41] VITALS: BP 145/82; PULSE 88
== END 2019-04-23 08:55 | disposition home or self-care (01) ==
LOC: MW.ED 07:19
DX: M62.830 Muscle spasm of back (principal); J44.9 Chronic obstructive pulmonary disease, unspecified; I10 Essential (primary) hypertension; F17.210 Nicotine dependence, cigarettes, uncomplicated; Z88.8 Allergy status to other drugs, medicaments and biological substances; Z79.51 Long term (current) use of inhaled steroids; Z79.899 Other long term (current) drug therapy
CPT/HCPCS: 36415; 74176; 80053; 81003; 83690; 84484; 85025; 93005; 96361; 96374; 99284; J1885; J7040

== ENCOUNTER 2019-06-06 06:38 | Emergency (ER) | payer BC ==
[2019-06-06] MEDS ORDERED: Albuterol/Ipratropium 3.0-0.5 MG/3 ML Neb Soln ONE (06:43)
[2019-06-06] MEDS ORDERED: Albuterol/Ipratropium 3.0-0.5 MG/3 ML Neb Soln NEB ONE (06:59)
[2019-06-06] MEDS ORDERED: methylPREDNISolone Sodium Succinate 125 MG/2 ML SDV IM ONE (07:00)
--- NOTE | 2019-06-06 07:02 | EDM.PDOC ---
ED HPI GENERAL MEDICAL PROBLEM - General Chief Complaint: Respiratory Problem Stated Complaint: SOB Time Seen by Provider: 06/06/19 06:58 - History of Present Illness INITIAL COMMENTS - FREE TEXT/NARRATIVE: HISTORY AND PHYSICAL: History of present illness: Patient's 48-year-old white male with a history of COPD who presents with concern of shortness breath he's had coughing that has been mild he is still a smoker he denies chest pain vomiting diarrhea or other concern. He has not received influenza immunization Review of systems: As per history of present illness and below otherwise all systems reviewed and negative. Past medical history: As per history of present illness and as reviewed below otherwise noncontributory. Surgical history: As per history of present illness and as reviewed below otherwise noncontributory. Social history: No reported history of drug or alcohol abuse. Family history: As per history of present illness and as reviewed below otherwise noncontributory. Physical exam: HEENT: Atraumatic, normocephalic, pupils reactive, negative for conjunctival pallor or scleral icterus, mucous membranes moist, throat clear, neck supple, nontender, trachea midline. Lungs: Diminished bilaterally, breath sounds equal bilaterally, chest nontender. Heart: S1S2, regular, negative for clicks, rubs, or JVD. Abdomen: Soft, nondistended, nontender. Negative for masses or hepatosplenomegaly. Negative for costovertebral tenderness. Pelvis: Stable nontender. Genitourinary: Deferred. Rectal: Deferred. Extremities: Atraumatic, negative for cords or calf pain. Neurovascular unremarkable. Neuro: Awake, alert, oriented. Cranial nerves II through XII unremarkable. Cerebellum unremarkable. Motor and sensory unremarkable throughout. Exam nonfocal. Diagnostics: Chest x-ray influenza screen EKG Therapeutics: Solu-Medrol 125 albuterol ipratropium nebulizer Impression: #1 COPD exacerbation Definitive disposition and diagnosis as appropriate pending reevaluation and review of above. no pain Pain Score (Numeric/FACES): 0 - Related Data Allergies Allergy/AdvReac Type Severity Reaction Status Date / Time tetrabenazine Allergy Severe Other Verified 04/23/19 07:27 umeclidinium Allergy Severe Swollen Verified 04/23/19 07:27 [From Incruse Ellipta] Tongue Home Meds: Home Meds Albuterol [Proventil] 2.5 mg IH Q8HR PRN 30 Days #1 inhaler 03/31/19 [Rx] ARIPiprazole [Abilify Mycite] 5 mg PO DAILY 04/10/19 [History] Losartan [Cozaar] 50 mg PO DAILY 06/06/19 [History] Tiotropium [Spiriva] 1 puff INH DAILY 06/06/19 [History] Past Medical History - Past Health History Medical/Surgical History: Denies Medical/Surgical History HEENT History: Reports: Impaired Vision Cardiovascular History: Reports: Hypertension Respiratory History: Reports: COPD Gastrointestinal History: Reports: None Genitourinary History: Reports: None Musculoskeletal History: Reports: None Neurological History: Reports: Other (See Below) Other Neuro History: [place] disease Psychiatric History: Reports: None Endocrine/Metabolic History: Reports: None Hematologic History: Reports: None Immunologic History: Reports: None Oncologic (Cancer) History: Reports: None Dermatologic History: Reports: None - Infectious Disease History Infectious Disease History: Reports: Chicken Pox - Past Surgical History Head Surgeries/Procedures: Reports: None HEENT Surgical History: Reports: None Cardiovascular Surgical History: Reports: None Respiratory Surgical History: Reports: None GI Surgical History: Reports: None Male Surgical History: Reports: None Endocrine Surgical History: Reports: None Neurological Surgical History: Reports: None Musculoskeletal Surgical History: Reports: None Oncologic Surgical History: Reports: None Dermatological Surgical History: Reports: None Social & Family History - Family History Family Medical History: Noncontributory - Tobacco Use Smoking Status *Q: Current Every Day Smoker Years of Tobacco use: 35 Packs/Tins Daily: 1 - Caffeine Use Caffeine Use: Reports: Soda - Recreational Drug Use Recreational Drug Use: No ED ROS GENERAL - Review of Systems Review Of Systems: Comprehensive ROS is negative, except as noted in HPI. ED EXAM, GENERAL - Physical Exam Exam: See Below (See dictation) Course - Vital Signs Text/Narrative:: Patient's emergency department course is been unremarkable chest x-ray was negative for consolidation or effusion. He was negative I discussed the patient admission for observation and further treatment patient declines and requests discharge home to be discharged on Medrol Dosepak is to continue his inhaler as directed and he is also prescribed azithromycin he is to follow-up with his private medical doctor and return as needed as discussed Last Recorded V/S: Last Vital Signs Temp 35.7 C 06/06/19 06:49 Pulse 100 06/06/19 06:49 Resp 22 H 06/06/19 06:49 BP 143/101 H 06/06/19 06:49 Pulse Ox 94 L 06/06/19 06:55 - Orders/Labs/Meds Orders: Active Orders 24 hr Category Date Time Status Cardiac Monitoring [RC] . DIRECTED Care 06/06/19 06:48 Active EKG Documentation Completion [RC] STAT Care 06/06/19 06:48 Active Oxygen Therapy, ED [RC] ASDIRECTED Care 06/06/19 06:48 Active Pulse Oximetry [RC] ASDIRECTED Care 06/06/19 06:48 Active RT Aerosol Therapy [RC] ASDIRECTED Care 06/06/19 06:59 Active Meds: Medications Discontinued Medications Generic Name Dose Route Start Last Admin Trade Name Freq PRN Reason Stop Dose Admin Albuterol/Ipratropium Confirm 06/06/19 06:43 06/06/19 07:08 Duoneb 3.0-0.5 Mg/3 Ml Administered 06/06/19 06:44 Not Given Dose 3 ml .ROUTE .STK-MED ONE Albuterol/Ipratropium 3 ml 06/06/19 06:59 06/06/19 07:08 Duoneb 3.0-0.5 Mg/3 Ml NEB 06/06/19 07:00 3 ml ONETIME ONE Administration Methylprednisolone Sodium Succinate 125 mg 06/06/19 07:00 06/06/19 07:11 Solu-Medrol IM 06/06/19 07:01 125 mg ONETIME ONE Administration Departure - Departure Time of Disposition: 07:01 Disposition: Home, Self-Care 01 Condition: Good Clinical Impression: COPD (chronic obstructive pulmonary disease) - Discharge Information Forms: ED Department Discharge Additional Instructions: The following information is given to patients seen in the emergency department who are being discharged to home. This information is to outline your options for follow-up care. We provide all patients seen in our emergency department with a follow-up referral. The need for follow-up, as well as the timing and circumstances, are variable depending upon the specifics of your emergency department visit. If you don't have a primary care physician on staff, we will provide you with a referral. We always advise you to contact your personal physician following an emergency department visit to inform them of the circumstance of the visit and for follow-up with them and/or the need for any referrals to a consulting specialist. The emergency department will also refer you to a specialist when appropriate. This referral assures that you have the opportunity for followup care with a specialist. All of these measure are taken in an effort to provide you with optimal care, which includes your followup. Under all circumstances we always encourage you to contact your private physician who remains a resource for coordinating your care. When calling for followup care, please make the office aware that this follow-up is from your recent emergency room visit. If for any reason you are refused follow-up, please contact the [facility] emergency department at and asked to speak to the emergency department charge nurse. Follow-up primary medical doctor Pierrerol Z-Richard and albuterol as prescribed and return as needed as discussed - My Orders Last 24 Hours: My Active Orders 06/06/19 06:59 RT Aerosol Therapy [RC] ASDIRECTED - Assessment/Plan Last 24 Hours: My Active Orders 06/06/19 06:59 RT Aerosol Therapy [RC] ASDIRECTED
--- NOTE | 2019-06-06 07:34 | CR ---
INDICATION: Pain. COMPARISON: Chest x-ray dated 10 April 2019. FINDINGS: A single portable chest x-ray shows a normal cardiac silhouette. The lungs show no focal pulmonary opacities. Sharp pleural margins. No pneumothorax. IMPRESSION: No evidence of acute pulmonary abnormalities. Dictated by Nelson Dominguez MD @ 06/06/2019 7:32:53 AM Dictated by: Nelson Dominguez MD @ 06/06/2019 07:33:06 (Electronically Signed)
[2019-06-06 10:31] VITALS: BP 131/89; PULSE 95
== END 2019-06-06 09:00 | disposition home or self-care (01) ==
LOC: MW.ED 06:38
DX: J44.1 Chronic obstructive pulmonary disease with (acute) exacerbation (principal); I10 Essential (primary) hypertension; F17.210 Nicotine dependence, cigarettes, uncomplicated; Z88.8 Allergy status to other drugs, medicaments and biological substances
CPT/HCPCS: 71045; 87804; 93005; 96372; 99285; J2930; 99283; J7620-GY

== ENCOUNTER 2019-07-15 06:36 | Emergency (ER) | payer BC ==
[2019-07-15 08:06] LABS: BLOOD UREA NITROGEN,BUN 16 mg/dL (7.0-18.0); CARBON DIOXIDE,CO2 24.9 mmol/L (21.0-32.0); CHLORIDE,CL 101 mmol/L (98-107); GLUCOSE RANDOM 235 mg/dL (74-106); POTASSIUM,K 3.8 mmol/L (3.5-5.1); SODIUM,NA 138 mmol/L (136-148)
--- NOTE | 2019-07-15 08:41 | EDM.PDOC ---
ED HPI GENERAL MEDICAL PROBLEM - General Chief Complaint: General Stated Complaint: CONFUSION, VIVID DREAMS, NEW AMBIEN PRESCRIP Time Seen by Provider: 07/15/19 07:46 Source of Information: Reports: Patient History Limitations: Reports: No Limitations - History of Present Illness INITIAL COMMENTS - FREE TEXT/NARRATIVE: Complains of having vivid dreams (seeing dogs in the clouds floating around. He states that it is "like an LSD trip" after taking Ambien 10mg times two last night. He took Ambien for the first time two days ago but only one tablet without problems. He has a history of COPD with wheezing but states that he wants to continue with his neb treatments at home. Onset: Today (early this morning.) Onset Date: 07/15/19 Onset Time: 06:00 Duration: Hour(s): Improves with: Reports: Other (getting better in the ED) Context: Reports: Other (associated with taking Ambien.) Associated Symptoms: Reports: No Other Symptoms - Related Data Allergies Allergy/AdvReac Type Severity Reaction Status Date / Time tetrabenazine Allergy Severe Other Verified 07/15/19 06:47 umeclidinium Allergy Severe Swollen Verified 07/15/19 06:47 [From Incruse Ellipta] Tongue Home Meds: Home Meds Albuterol [Proventil] 2.5 mg IH Q8HR PRN 30 Days #1 inhaler 03/31/19 [Rx] ARIPiprazole [Abilify Mycite] 5 mg PO DAILY 04/10/19 [History] Losartan [Cozaar] 50 mg PO DAILY 06/06/19 [History] Omeprazole Magnesium [Prilosec Otc] 20 mg PO DAILY 07/15/19 [History] Varenicline Tartrate [Chantix] 1 mg PO DAILY 07/15/19 [History] Past Medical History - Past Health History Medical/Surgical History: Denies Medical/Surgical History HEENT History: Reports: Impaired Vision Cardiovascular History: Reports: Hypertension Respiratory History: Reports: COPD Gastrointestinal History: Reports: None Genitourinary History: Reports: None Musculoskeletal History: Reports: None Neurological History: Reports: Other (See Below) Other Neuro History: [place] disease Psychiatric History: Reports: None Endocrine/Metabolic History: Reports: Obesity/BMI 30+ Hematologic History: Reports: None Immunologic History: Reports: None Oncologic (Cancer) History: Reports: None Dermatologic History: Reports: None - Infectious Disease History Infectious Disease History: Reports: Chicken Pox - Past Surgical History Head Surgeries/Procedures: Reports: None HEENT Surgical History: Reports: None Cardiovascular Surgical History: Reports: None Respiratory Surgical History: Reports: None GI Surgical History: Reports: None Male Surgical History: Reports: None Endocrine Surgical History: Reports: None Neurological Surgical History: Reports: None Musculoskeletal Surgical History: Reports: None Oncologic Surgical History: Reports: None Dermatological Surgical History: Reports: None Social & Family History - Family History Family Medical History: Noncontributory - Tobacco Use Smoking Status *Q: Current Every Day Smoker Years of Tobacco use: 37 Packs/Tins Daily: 1 - Caffeine Use Caffeine Use: Reports: Soda - Recreational Drug Use Recreational Drug Use: No ED ROS GENERAL - Review of Systems Review Of Systems: See Below Constitutional: Reports: No Symptoms HEENT: Reports: No Symptoms Respiratory: Reports: Wheezing (he states that he has COPD and is on Albut at home. He states that he does not want this treated.) Cardiovascular: Reports: No Symptoms Endocrine: Reports: No Symptoms GI/Abdominal: Reports: No Symptoms (with the exception of a umbilical hernia) : Reports: No Symptoms Musculoskeletal: Reports: No Symptoms Skin: Reports: No Symptoms Neurological: Reports: Other (seeing things after takine Two, 10 mg Ambien last night.) Psychiatric: Reports: No Symptoms Hematologic/Lymphatic: Reports: No Symptoms ED EXAM, GENERAL - Physical Exam Exam: See Below Exam Limited By: No Limitations General Appearance: Alert, WD/WN, No Apparent Distress Eye Exam: Bilateral Eye: Normal Fundi, Normal Inspection, PERRL Ears: Normal External Exam, Normal Canal, Hearing Grossly Normal, Normal TMs Ear Exam: Bilateral Ear: Auricle Normal, Canal Normal, TM normal Nose: Normal Inspection, Normal Mucosa, No Blood Throat/Mouth: Normal Inspection, Normal Lips, Normal Teeth, Normal Gums, Normal Oropharynx, Normal Voice, No Airway Compromise Head: Atraumatic, Normocephalic Neck: Normal Inspection, Supple, Non-Tender, Full Range of Motion Respiratory/Chest: No Respiratory Distress, Wheezing (over both upper lobes.), Prolonged Expiration Cardiovascular: Normal Peripheral Pulses, Regular Rate, Rhythm (89 beats per minute.), No Edema, No Gallop, No JVD, No Murmur, No Rub Peripheral Pulses: 3+: Carotid (L), Carotid (R), Femoral (L), Femoral (R), Dorsalis Pedis (L), Dorsalis Pedis (R) GI/Abdominal: Normal Bowel Sounds, Soft, Non-Tender, No Organomegaly, No Mass, Distended (which he states is normal for him.), Other (umbilical hernia noted that is small.) Back Exam: Normal Inspection, Full Range of Motion, NT Extremities: Normal Inspection, Normal Range of Motion, Non-Tender, Normal Capillary Refill, No Pedal Edema Neurological: Alert, Oriented, CN II-XII Intact, Normal Cognition, Normal Gait, Normal Reflexes, No Motor/Sensory Deficits Psychiatric: Normal Affect, Normal Mood Skin Exam: Warm, Dry, Intact, Normal Color, No Rash Lymphatic: No Adenopathy Course - Vital Signs Last Recorded V/S: Last Vital Signs Temp 98 F 07/15/19 06:40 Pulse 102 H 07/15/19 06:40 Resp 18 07/15/19 06:40 BP 131/91 H 07/15/19 06:40 Pulse Ox 95 07/15/19 06:40 - Orders/Labs/Meds Orders: Active Orders 24 hr Category Date Time Status EKG Documentation Completion [RC] STAT Care 07/15/19 06:40 Active Labs: Laboratory Tests 07/15/19 07/15/19 07/15/19 Range/Units 07:38 07:38 08:05 WBC 7.70 (4.0-11.0) K/uL RBC 4.71 (4.50-5.90) M/uL Hgb 14.9 (13.0-17.0) g/dL Hct 43.7 (38.0-50.0) % MCV 92.8 (80.0-98.0) fL MCH 31.6 (27.0-32.0) pg MCHC 34.1 (31.0-37.0) g/dL RDW Std Deviation 45.8 (28.0-62.0) fl RDW Coeff of Laura 14 (11.0-15.0) % Plt Count 192 (150-400) K/uL MPV 10.30 (7.40-12.00) fL Neut % (Auto) 80.8 H (48.0-80.0) % Lymph % (Auto) 12.9 L (16.0-40.0) % Ballard % (Auto) 6.0 (0.0-15.0) % Eos % (Auto) 0.0 (0.0-7.0) % Baso % (Auto) 0.3 (0.0-1.5) % Neut # (Auto) 6.2 H (1.4-5.7) K/uL Lymph # (Auto) 1.0 (0.6-2.4) K/uL Ballard # (Auto) 0.5 (0.0-0.8) K/uL Eos # (Auto) 0.0 (0.0-0.7) K/uL Baso # (Auto) 0.0 (0.0-0.1) K/uL Nucleated RBC % 0.0 /100WBC Nucleated RBCs # 0 K/uL Sodium 138 (136-148) mmol/L Potassium 3.8 (3.5-5.1) mmol/L Chloride 101 (98-107) mmol/L Carbon Dioxide 24.9 (21.0-32.0) mmol/L BUN 16 (7.0-18.0) mg/dL Creatinine 1.2 (0.8-1.3) mg/dL Est Cr Clr Drug Dosing 68.67 mL/min Estimated GFR (MDRD) > 60.0 ml/min Glucose 235 H (74-106) mg/dL Calcium 8.7 (8.5-10.1) mg/dL Total Bilirubin 0.2 (0.2-1.0) mg/dL AST 18 (15-37) IU/L ALT 65 H (14-63) IU/L Alkaline Phosphatase 82 (46-116) U/L Total Protein 7.2 (6.4-8.2) g/dL Albumin 3.7 (3.4-5.0) g/dL Globulin 3.5 (2.6-4.0) g/dL Albumin/Globulin Ratio 1.1 (0.9-1.6) Urine Opiates Screen NEGATIVE (NEGATIVE) Ur Oxycodone Screen NEGATIVE (NEGATIVE) Urine Methadone Screen NEGATIVE (NEGATIVE) Ur Barbiturates Screen NEGATIVE (NEGATIVE) Ur Phencyclidine Scrn NEGATIVE (NEGATIVE) Ur Amphetamine Screen NEGATIVE (NEGATIVE) U Methamphetamines Scrn NEGATIVE (NEGATIVE) U Benzodiazepines Scrn NEGATIVE (NEGATIVE) U Cocaine Metab Screen NEGATIVE (NEGATIVE) U Marijuana (THC) Screen NEGATIVE (NEGATIVE) Departure - Departure Time of Disposition: 09:47 Disposition: Home, Self-Care 01 Condition: Good Clinical Impression: Adverse drug reaction Qualifiers: Encounter type: initial encounter Qualified Code(s): T50.905A - Adverse effect of unspecified drugs, medicaments and biological substances, initial encounter - Discharge Information *PRESCRIPTION DRUG MONITORING PROGRAM REVIEWED*: Yes *COPY OF PRESCRIPTION DRUG MONITORING REPORT IN PATIENT ANGEL: Yes Referrals: Mattie Martin PA [Primary Care Provider] - Forms: ED Department Discharge, ED Return to Work/School Form Additional Instructions: Stop taking your Ambien now. Follow up with your PCP in the next two to three days. No work today. Return to the ED if your condition gets worse. The following information is given to patients seen in the emergency department who are being discharged to home. This information is to outline your options for follow-up care. We provide all patients seen in our emergency department with a follow-up referral. The need for follow-up, as well as the timing and circumstances, are variable depending upon the specifics of your emergency department visit. If you don't have a primary care physician on staff, we will provide you with a referral. We always advise you to contact your personal physician following an emergency department visit to inform them of the circumstance of the visit and for follow-up with them and/or the need for any referrals to a consulting specialist. The emergency department will also refer you to a specialist when appropriate. This referral assures that you have the opportunity for follow-up care with a specialist. All of these measure are taken in an effort to provide you with optimal care, which includes your follow-up. Under all circumstances we always encourage you to contact your private physician who remains a resource for coordinating your care. When calling for follow-up care, please make the office aware that this follow-up is from your recent emergency room visit. If for any reason you are refused follow-up, please contact the [facility] Emergency Department at and asked to speak to the emergency department charge nurse. Sepsis Event Note - Evaluation Sepsis Screening Result: No Definite Risk - Focused Exam Vital Signs: Vital Signs Temp Pulse Resp BP Pulse Ox 07/15/19 06:40 98 F 102 H 18 131/91 H 95 Date Exam was Performed: 07/15/19 Time Exam was Performed: 09:46
[2019-07-15 10:06] VITALS: BP 125/89; PULSE 98
== END 2019-07-15 10:04 | disposition home or self-care (01) ==
LOC: MW.ED 06:36
DX: R41.0 Disorientation, unspecified (principal); T42.6X5A Adverse effect of other antiepileptic and sedative-hypnotic drugs, initial encounter; I10 Essential (primary) hypertension; J44.9 Chronic obstructive pulmonary disease, unspecified; E66.9 Obesity, unspecified; F17.210 Nicotine dependence, cigarettes, uncomplicated; Z88.8 Allergy status to other drugs, medicaments and biological substances; Z79.899 Other long term (current) drug therapy; Z68.41 Body mass index [BMI] 40.0-44.9, adult
CPT/HCPCS: 36415; 80053; 80305-QW; 85025; 93005; 99283; 99285-25

== ENCOUNTER 2019-09-22 06:58 | Emergency (ER) | payer BC ==
--- NOTE | 2019-09-22 08:03 | EDM.PDOC ---
ED HPI GENERAL MEDICAL PROBLEM - General Chief Complaint: General Stated Complaint: WANTS TO BE TESTED FOR BERMUDEZ VIRUS Time Seen by Provider: 09/22/19 07:54 Source of Information: Reports: Patient History Limitations: Reports: No Limitations - History of Present Illness INITIAL COMMENTS - FREE TEXT/NARRATIVE: This 49 year old male with a history of COPD and is on daily inhalers is admitted to the ED with a chief complaint of sore throat and runny nose for 24 hours. He states that due to his COPD he always cough and that it is the same. He denies any fever or chills. He denies any weakness. He denies any chest pain or SOB. He denies any other symptoms. Onset: Today Severity: Mild (except for his sore throat) Throat Pain Score (Numeric/FACES): 3 - Related Data Allergies Allergy/AdvReac Type Severity Reaction Status Date / Time tetrabenazine Allergy Severe Other Verified 09/22/19 07:52 umeclidinium Allergy Severe Swollen Verified 09/22/19 07:52 [From Incruse Ellipta] Tongue Home Meds: Home Meds Albuterol [Proventil] 2.5 mg IH Q8HR PRN 30 Days #1 inhaler 03/31/19 [Rx] ARIPiprazole [Abilify Mycite] 5 mg PO DAILY 04/10/19 [History] Losartan [Cozaar] 50 mg PO DAILY 06/06/19 [History] Budesonide/Formoterol [Symbicort 160-4.5 MCG] 6 gm INH ASDIRECTED 09/22/19 [ History] Oseltamivir [Tamiflu] 75 mg PO BID 5 Days #10 cap 09/22/19 [Rx] Past Medical History - Past Health History Medical/Surgical History: Denies Medical/Surgical History HEENT History: Reports: Impaired Vision Cardiovascular History: Reports: Hypertension Respiratory History: Reports: COPD Gastrointestinal History: Reports: None Genitourinary History: Reports: None Musculoskeletal History: Reports: None Neurological History: Reports: Other (See Below) Other Neuro History: [place] disease Psychiatric History: Reports: None Endocrine/Metabolic History: Reports: Obesity/BMI 30+ Hematologic History: Reports: None Immunologic History: Reports: None Oncologic (Cancer) History: Reports: None Dermatologic History: Reports: None - Infectious Disease History Infectious Disease History: Reports: Chicken Pox - Past Surgical History Head Surgeries/Procedures: Reports: None HEENT Surgical History: Reports: None Cardiovascular Surgical History: Reports: None Respiratory Surgical History: Reports: None GI Surgical History: Reports: None Male Surgical History: Reports: None Endocrine Surgical History: Reports: None Neurological Surgical History: Reports: None Musculoskeletal Surgical History: Reports: None Oncologic Surgical History: Reports: None Dermatological Surgical History: Reports: None Social & Family History - Family History Family Medical History: Noncontributory - Caffeine Use Caffeine Use: Reports: Soda ED ROS GENERAL - Review of Systems Review Of Systems: See Below Constitutional: Reports: No Symptoms HEENT: Reports: Throat Pain Respiratory: Reports: No Symptoms Cardiovascular: Reports: No Symptoms Endocrine: Reports: No Symptoms GI/Abdominal: Reports: No Symptoms : Reports: No Symptoms Musculoskeletal: Reports: No Symptoms Skin: Reports: No Symptoms ED EXAM, GENERAL - Physical Exam Exam: See Below Exam Limited By: No Limitations General Appearance: Alert, WD/WN, No Apparent Distress Ears: Normal External Exam, Normal Canal, Hearing Grossly Normal, Normal TMs Nose: Normal Inspection, Normal Mucosa, No Blood Throat/Mouth: Normal Voice, No Airway Compromise, Inflammation (posterior pharynx). No: Dysphagia Head: Atraumatic, Normocephalic Neck: Normal Inspection, Supple, Non-Tender, Full Range of Motion Respiratory/Chest: No Respiratory Distress, Lungs Clear, Normal Breath Sounds, No Accessory Muscle Use, Chest Non-Tender Cardiovascular: Normal Peripheral Pulses, Regular Rate, Rhythm, No Edema, No Gallop, No JVD, No Murmur, No Rub GI/Abdominal: Normal Bowel Sounds, Soft, Non-Tender (Male) Exam: Deferred Rectal (Males) Exam: Deferred Back Exam: Normal Inspection, Full Range of Motion Extremities: Normal Inspection, Normal Range of Motion, Normal Capillary Refill Neurological: Alert, Oriented (times 4), CN II-XII Intact, Normal Cognition, Normal Reflexes Skin Exam: Warm, Dry, Intact, Normal Color, No Rash Lymphatic: No Adenopathy Course - Vital Signs Text/Narrative:: His strep screen came back negative. He will be discharged. He agrees with the discharge plan. Last Recorded V/S: Last Vital Signs Temp 97.3 F 09/22/19 07:54 Pulse 98 09/22/19 07:54 Resp 18 09/22/19 07:54 BP 144/96 H 09/22/19 07:54 Pulse Ox 98 09/22/19 07:54 - Orders/Labs/Meds Orders: Active Orders 24 hr Category Date Time Status Chest 2V [CR] Stat Exams 09/22/19 08:03 Ordered CULTURE STREP A CONFIRMATION [RM] Stat Lab 09/22/19 08:15 Results STREP SCRN A RAPID W CULT CONF [RM] Stat Lab 09/22/19 08:15 Received Isolation [COMM] Routine Oth 09/22/19 08:03 Active Meds: Medications Discontinued Medications Generic Name Dose Route Start Last Admin Trade Name Freq PRN Reason Stop Dose Admin Oseltamivir Phosphate 75 mg 09/22/19 08:04 09/22/19 08:23 Tamiflu PO 09/22/19 08:05 75 mg ONETIME ONE Administration Departure - Departure Time of Disposition: 08:44 Disposition: Home, Self-Care 01 Condition: Good Clinical Impression: Viral syndrome Pharyngitis Qualifiers: Pharyngitis/tonsillitis etiology: unspecified etiology Qualified Code(s): J02.9 - Acute pharyngitis, unspecified - Discharge Information *PRESCRIPTION DRUG MONITORING PROGRAM REVIEWED*: Yes *COPY OF PRESCRIPTION DRUG MONITORING REPORT IN PATIENT ANGEL: Yes Instructions: Sore Throat Referrals: Kirsten Ochoa MD [Primary Care Provider] - Forms: ED Department Discharge Additional Instructions: Take all medications as directed. Follow up with your PCP in the next two to four days. Gargle with salt water for the next two to three days as needed for sore throat. Drink plenty of clear liquids for the next 24-48 hours. Rest for the next 24 hours. Return to the ED if your condition gets worse or should you have any questions or concerns. The following information is given to patients seen in the emergency department who are being discharged to home. This information is to outline your options for follow-up care. We provide all patients seen in our emergency department with a follow-up referral. The need for follow-up, as well as the timing and circumstances, are variable depending upon the specifics of your emergency department visit. If you don't have a primary care physician on staff, we will provide you with a referral. We always advise you to contact your personal physician following an emergency department visit to inform them of the circumstance of the visit and for follow-up with them and/or the need for any referrals to a consulting specialist. The emergency department will also refer you to a specialist when appropriate. This referral assures that you have the opportunity for follow-up care with a specialist. All of these measure are taken in an effort to provide you with optimal care, which includes your follow-up. Under all circumstances we always encourage you to contact your private physician who remains a resource for coordinating your care. When calling for follow-up care, please make the office aware that this follow-up is from your recent emergency room visit. If for any reason you are refused follow-up, please contact the [facility] Emergency Department at and asked to speak to the emergency department charge nurse. Sepsis Event Note - Focused Exam Vital Signs: Vital Signs Temp Pulse Resp BP Pulse Ox 09/22/19 07:54 97.3 F 98 18 144/96 H 98 Date Exam was Performed: 09/22/19 Time Exam was Performed: 08:43 - My Orders Last 24 Hours: My Active Orders 09/22/19 08:03 Chest 2V [CR] Stat Isolation [COMM] Routine 09/22/19 08:15 CULTURE STREP A CONFIRMATION [RM] Stat STREP SCRN A RAPID W CULT CONF [RM] Stat - Assessment/Plan Last 24 Hours: My Active Orders 09/22/19 08:03 Chest 2V [CR] Stat Isolation [COMM] Routine 09/22/19 08:15 CULTURE STREP A CONFIRMATION [RM] Stat STREP SCRN A RAPID W CULT CONF [RM] Stat
[2019-09-22] MEDS ORDERED: Oseltamivir 75 MG Cap PO ONE (08:04)
[2019-09-22 09:00] VITALS: BP 139/92; PULSE 108
== END 2019-09-22 08:55 | disposition home or self-care (01) ==
LOC: MW.ED 06:58
DX: J02.9 Acute pharyngitis, unspecified (principal); B34.9 Viral infection, unspecified; I10 Essential (primary) hypertension; J44.9 Chronic obstructive pulmonary disease, unspecified; E66.9 Obesity, unspecified; Z68.41 Body mass index [BMI] 40.0-44.9, adult; Z88.8 Allergy status to other drugs, medicaments and biological substances; Z79.899 Other long term (current) drug therapy
CPT/HCPCS: 87081; 87880; 99283; A9270; 99282

== ENCOUNTER 2020-04-10 02:30 | Emergency (ER) | payer BC, OTHER ==
[2020-04-10 02:46] VITALS: BP 140/90; PULSE 119
[2020-04-10] MEDS ORDERED: Albuterol/Ipratropium 3.0-0.5 MG/3 ML Neb Soln NEB ONE ×2 (02:50→02:56)
[2020-04-10] MEDS ORDERED: predniSONE 10 MG Tab PO ONE (02:51)
[2020-04-10] MEDS ORDERED: Albuterol/Ipratropium 3.0-0.5 MG/3 ML Neb Soln ONE (02:53)
--- NOTE | 2020-04-10 04:40 | CR ---
INDICATION: Difficulty breathing TECHNIQUE: Portable upright AP view of the chest COMPARISON: PA and lateral chest radiographs 08/15/2019 FINDINGS: The lungs are clear. There is no sizable pleural effusion or pneumothorax. The cardiomediastinal silhouette is normal. The visualized osseous structures are unremarkable. IMPRESSION: No acute intrathoracic process. Dictated by Yokasta Maza MD @ Apr 10 2020 4:38AM Signed by Dr. Yokasta Maza @ Apr 10 2020 4:38AM
[2020-04-10 04:48] LABS: BLOOD UREA NITROGEN,BUN 14 mg/dL (7.0-18.0); CARBON DIOXIDE,CO2 25.8 mmol/L (21.0-32.0); CHLORIDE,CL 101 mmol/L (98-107); GLUCOSE RANDOM 137 mg/dL (74-106); POTASSIUM,K 4.1 mmol/L (3.5-5.1); SODIUM,NA 138 mmol/L (136-148)
--- NOTE | 2020-04-10 04:57 | EDM.PDOC ---
ED HPI GENERAL MEDICAL PROBLEM - General Chief Complaint: General Stated Complaint: MEDICAL CLEARANCE Time Seen by Provider: 04/10/20 02:50 - History of Present Illness INITIAL COMMENTS - FREE TEXT/NARRATIVE: CHIEF COMPLAINT(S): Wheezing HISTORY OF PRESENT ILLNESS: This is a 49-year-old man with a past medical history of COPD who comes to the emergency department with a chief complaint of wheezing. Patient was brought in by [facility] for medical clearance. They noticed that the patient was wheezing so they brought him to the emergency department. The patient states that he is always short of breath and wheezing. He states that this is no different than normal. He denies any chest pain, fever, shortness of breath, abdominal pain, nausea or vomiting. He states that he use albuterol and Symbicort but has not been using them more frequently. He denies any other symptoms. REVIEW OF SYSTEMS: Constitutional: Denies fever, chills. Eyes: Denies eye pain Ears, Nose, Mouth, & Throat: Denies earache Cardiovascular: Denies chest pain Respiratory: Positive for shortness of breath and wheezing Gastrointestinal: Denies Nausea, vomiting, diarrhea, hematochezia. Genitourinary: Denies hematuria Skin:Denies a rash Neurological: Denies blurred vision Psychiatric: Denies depression PAST MEDICAL HISTORY: As per history of present illness and as reviewed below otherwise noncontributory. SURGICAL HISTORY: As per history of present illness and as reviewed below otherwise noncontributory. SOCIAL HISTORY: As per history of present illness and as reviewed below otherwise noncontributory. FAMILY HISTORY: As per history of present illness and as reviewed below otherwise noncontributory. EXAMINATION OF ORGAN SYSTEMS/BODY AREAS: Constitutional: Blood pressure was 140/90, heart rate 119, respiratory rate 22 with an oxygen saturation 96% on room air. Temperature 36.3 General: Morbidly obese man who is audibly wheezing but does not appear to be in any acute distress Psychiatric: Appears agitated Eyes: No scleral icterus or conjunctival erythema ENMT: Moist mucous membranes. No pharyngeal erythema Cardiovascular: On my examination the patient was not tachycardic and had regular rate and rhythm. No gallops, murmurs, or rubs. Bilateral upper extremity pulses symmetric and intact. No peripheral edema. No JVD. Respiratory: The patient has audible respiratory wheezing who is mildly tachypneic but speaking in full sentences. He does have a prolonged expiratory phase. Gastrointestinal: Soft, non-tender, non-distended. Normoactive bowel sounds Genitourinary: No suprapubic tenderness Musculoskeletal: Normal range of motion. Skin: No lesions or abrasions. Neurological: Alert, GCS 15 MEDICAL DECISION MAKING AND COURSE IN THE ED WITH INTERPRETATION/REVIEW OF DIAGNOSTIC STUDIES: This is a 49-year-old man with a past medical history of COPD who comes to the emergency department with audible wheezing who is saturating well on room air and mildly tachypneic and tachycardic. At this time we do not not have BiPAP however we will administer DuoNeb treatments. We also provide the patient with prednisone by mouth. We will reevaluate for improvement. Patient stated after 5 minutes that he no longer wanted to receive DuoNeb treatments. I did have a discussion with the patient and he was amenable to continuing the treatments. He continued to saturate well on room air and was speaking in full sentences. I did review the patient's chart and he has been seen prior for his wheezing and shortness of breath. He apparently has a past medical history of wheezing at baseline and prolonged expiratory phase who is been discharged multiple times. At this time I did reevaluate the patient after DuoNeb treatment and he continued to have wheezing and was still saturating well on room air. Given the degree of his wheezing I will obtain laboratory analysis and VBG to evaluate for respiratory failure. We also obtain an EKG and a chest x-ray. Twelve-lead EKG interpreted by myself. Sinus tachycardia at a rate of 108beats per minute. Left axis. NC interval is 128ms. QRS duration is 96ms. ST segments are normal without elevations or depressions. Q wave is noted in leads III. Hypertrophy not noted. No changes demonstrated from prior EKG dated 07/15/2019. Interpretation: Sinus tachycardia Laboratory: CBC is unremarkable. BMP is unremarkable. Troponin is negative. [id number] The radiological images were viewed by myself along with reading the report from the radiologist. Chest x-ray does not reveal any acute intrathoracic process. On reevaluation, the patient continued to remain stable with wheezing. I did discuss admission however he does not want to be admitted at this time. Even that he is saturating well and speaking in full sentences and there is prior documentation that the patient has audible wheezing at baseline the patient can be medically cleared [facility]. I did provide strict return precautions. The patient is to take prednisone for 5 days and return for worsening shortness of breath. DISPOSITION: The patient was discharged home in stable condition. The patient will follow up with PCP within 1 week CONDITION: Fair PROCEDURES: None FINAL IMPRESSION(S)/DIAGNOSES: 1. Acute on chronic wheezing secondary to COPD Jasiel Brizuela M.D. Generalized Pain Score (Numeric/FACES): 4 - Related Data Allergies Allergy/AdvReac Type Severity Reaction Status Date / Time tetrabenazine Allergy Severe Other Verified 09/22/19 07:52 umeclidinium Allergy Severe Swollen Verified 09/22/19 07:52 [From Incruse Ellipta] Tongue Home Meds: Home Meds Albuterol [Proventil] 2.5 mg IH Q8HR PRN 30 Days #1 inhaler 03/31/19 [Rx] ARIPiprazole [Abilify Mycite] 5 mg PO DAILY 04/10/19 [History] Losartan [Cozaar] 50 mg PO DAILY 06/06/19 [History] Budesonide/Formoterol [Symbicort 160-4.5 MCG] 6 gm INH ASDIRECTED 09/22/19 [History] Oseltamivir [Tamiflu] 75 mg PO BID 5 Days #10 cap 09/22/19 [Rx] predniSONE [Prednisone] 50 mg PO DAILY 5 Days #5 tablet 04/10/20 [Rx] Past Medical History - Past Health History Medical/Surgical History: Denies Medical/Surgical History HEENT History: Reports: Impaired Vision Cardiovascular History: Reports: Hypertension Respiratory History: Reports: COPD Gastrointestinal History: Reports: None Genitourinary History: Reports: None Musculoskeletal History: Reports: None Neurological History: Reports: Other (See Below) Other Neuro History: Tonya disease Psychiatric History: Reports: None Endocrine/Metabolic History: Reports: Obesity/BMI 30+ Hematologic History: Reports: None Immunologic History: Reports: None Oncologic (Cancer) History: Reports: None Dermatologic History: Reports: None - Infectious Disease History Infectious Disease History: Reports: Chicken Pox - Past Surgical History Head Surgeries/Procedures: Reports: None HEENT Surgical History: Reports: None Cardiovascular Surgical History: Reports: None Respiratory Surgical History: Reports: None GI Surgical History: Reports: None Male Surgical History: Reports: None Endocrine Surgical History: Reports: None Neurological Surgical History: Reports: None Musculoskeletal Surgical History: Reports: None Oncologic Surgical History: Reports: None Dermatological Surgical History: Reports: None Social & Family History - Family History Family Medical History: Noncontributory - Tobacco Use Smoking Status *Q: Current Every Day Smoker Years of Tobacco use: 35 Packs/Tins Daily: 2 Used Tobacco, but Quit: No Second Hand Smoke Exposure: No - Caffeine Use Caffeine Use: Reports: Soda - Recreational Drug Use Recreational Drug Use: No ED ROS GENERAL - Review of Systems Review Of Systems: See Below ED EXAM, GENERAL - Physical Exam Exam: See Below Course - Vital Signs Last Recorded V/S: Last Vital Signs Temp 36.3 C 04/10/20 02:41 Pulse 119 H 04/10/20 02:41 Resp 22 H 04/10/20 02:41 BP 140/90 04/10/20 02:41 Pulse Ox 96 04/10/20 02:41 - Orders/Labs/Meds Orders: Active Orders 24 hr Category Date Time Status CORONAVIRUS COVID-19 PCR [facility] Stat Lab 04/10/20 04:11 Ordered Labs: Laboratory Tests 04/10/20 04/10/20 04/10/20 Range/Units 04:00 04:03 04:03 WBC 8.74 (4.0-11.0) K/uL RBC 5.48 (4.50-5.90) M/uL Hgb 17.5 H (13.0-17.0) g/dL Hct 50.2 H (38.0-50.0) % MCV 91.6 (80.0-98.0) fL MCH 31.9 (27.0-32.0) pg MCHC 34.9 (31.0-37.0) g/dL RDW Std Deviation 44.7 (28.0-62.0) fl RDW Coeff of Laura 13 (11.0-15.0) % Plt Count 204 (150-400) K/uL MPV 10.20 (7.40-12.00) fL Neut % (Auto) 64.2 (48.0-80.0) % Lymph % (Auto) 28.0 (16.0-40.0) % [place] % (Auto) 6.6 (0.0-15.0) % Eos % (Auto) 0.5 (0.0-7.0) % Baso % (Auto) 0.7 (0.0-1.5) % Neut # (Auto) 5.6 (1.4-5.7) K/uL Lymph # (Auto) 2.5 H (0.6-2.4) K/uL [place] # (Auto) 0.6 (0.0-0.8) K/uL Eos # (Auto) 0.0 (0.0-0.7) K/uL Baso # (Auto) 0.1 (0.0-0.1) K/uL Nucleated RBC % 0.0 /100WBC Nucleated RBCs # 0 K/uL VBG pH (7.31-7.41) VBG pCO2 (35-45) mmHG VBG pO2 (30-40) mmHG VBG HCO3 (22-30) mEq/L VBG Total CO2 (41-51) mmol/L VBG Base Excess (-3.0-3.0) Sodium 138 (136-148) mmol/L Potassium 4.1 (3.5-5.1) mmol/L Chloride 101 (98-107) mmol/L Carbon Dioxide 25.8 (21.0-32.0) mmol/L BUN 14 (7.0-18.0) mg/dL Creatinine 1.2 (0.8-1.3) mg/dL Est Cr Clr Drug Dosing 65.49 mL/min Estimated GFR (MDRD) > 60.0 ml/min Glucose 137 H (74-106) mg/dL Calcium 8.9 (8.5-10.1) mg/dL Troponin I < 0.050 (0.000-0.056) ng/mL SARS CoV-2 RNA Rapid MUNA NEGATIVE (NEGATIVE) 04/10/20 Range/Units 04:03 WBC (4.0-11.0) K/uL RBC (4.50-5.90) M/uL Hgb (13.0-17.0) g/dL Hct (38.0-50.0) % MCV (80.0-98.0) fL MCH (27.0-32.0) pg MCHC (31.0-37.0) g/dL RDW Std Deviation (28.0-62.0) fl RDW Coeff of Laura (11.0-15.0) % Plt Count (150-400) K/uL MPV (7.40-12.00) fL Neut % (Auto) (48.0-80.0) % Lymph % (Auto) (16.0-40.0) % [place] % (Auto) (0.0-15.0) % Eos % (Auto) (0.0-7.0) % Baso % (Auto) (0.0-1.5) % Neut # (Auto) (1.4-5.7) K/uL Lymph # (Auto) (0.6-2.4) K/uL [place] # (Auto) (0.0-0.8) K/uL Eos # (Auto) (0.0-0.7) K/uL Baso # (Auto) (0.0-0.1) K/uL Nucleated RBC % /100WBC Nucleated RBCs # K/uL VBG pH 7.34 (7.31-7.41) VBG pCO2 48 H (35-45) mmHG VBG pO2 27 L (30-40) mmHG VBG HCO3 26 (22-30) mEq/L VBG Total CO2 23 L (41-51) mmol/L VBG Base Excess -0.9 (-3.0-3.0) Sodium (136-148) mmol/L Potassium (3.5-5.1) mmol/L Chloride (98-107) mmol/L Carbon Dioxide (21.0-32.0) mmol/L BUN (7.0-18.0) mg/dL Creatinine (0.8-1.3) mg/dL Est Cr Clr Drug Dosing mL/min Estimated GFR (MDRD) ml/min Glucose (74-106) mg/dL Calcium (8.5-10.1) mg/dL Troponin I (0.000-0.056) ng/mL SARS CoV-2 RNA Rapid MUNA (NEGATIVE) Meds: Medications Discontinued Medications Generic Name Dose Route Start Last Admin Trade Name Freq PRN Reason Stop Dose Admin Albuterol/Ipratropium 3 ml 04/10/20 02:50 04/10/20 02:56 Duoneb 3.0-0.5 Mg/3 Ml NEB 04/10/20 02:51 3 ml ONETIME ONE Administration Albuterol/Ipratropium Confirm 04/10/20 02:53 04/10/20 02:56 Duoneb 3.0-0.5 Mg/3 Ml Administered 04/10/20 02:54 6 ml Dose Administration 6 ml .ROUTE .STK-MED ONE Albuterol/Ipratropium 6 ml 04/10/20 02:56 04/10/20 03:18 Duoneb 3.0-0.5 Mg/3 Ml NEB 04/10/20 02:57 6 ml ONETIME ONE Administration Prednisone 50 mg 04/10/20 02:51 04/10/20 03:01 Prednisone PO 04/10/20 02:52 50 mg ONETIME ONE Administration Departure - Departure Time of Disposition: 04:56 Disposition: Home, Self-Care 01 Condition: Fair Clinical Impression: COPD (chronic obstructive pulmonary disease) Qualifiers: COPD type: chronic bronchitis Chronic bronchitis type: simple Qualified Code(s): J41.0 - Simple chronic bronchitis - Discharge Information *PRESCRIPTION DRUG MONITORING PROGRAM REVIEWED*: No *COPY OF PRESCRIPTION DRUG MONITORING REPORT IN PATIENT ANGEL: No Prescriptions: predniSONE [Prednisone] 50 mg PO DAILY 5 Days #5 tablet Instructions: Asthma, Adult Referrals: PCP,None [Primary Care Provider] - Forms: ED Department Discharge Additional Instructions: The patient is informed of any results of their evaluation and diagnostic workup and all questions are answered. They are given discharge instructions and return precautions. The patient is stable for discharge. The patient states they understand and agree with the plan and that they will return if their symptoms get worse or if they have any new concerns. The following information is given to patients seen in the emergency department who are being discharged to home. This information is to outline your options for follow-up care. We provide all patients seen in our emergency department with a follow-up referral. The need for follow-up, as well as the timing and circumstances, are variable depending upon the specifics of your emergency department visit. If you don't have a primary care physician on staff, we will provide you with a referral. We always advise you to contact your personal physician following an emergency department visit to inform them of the circumstance of the visit and for follow-up with them and/or the need for any referrals to a consulting specialist. The emergency department will also refer you to a specialist when appropriate. This referral assures that you have the opportunity for follow-up care with a specialist. All of these measure are taken in an effort to provide you with optimal care, which includes your follow-up. Under all circumstances we always encourage you to contact your private physician who remains a resource for coordinating your care. When calling for follow-up care, please make the office aware that this follow-up is from your recent emergency room visit. If for any reason you are refused follow-up, please contact the [facility] Emergency Department at and asked to speak to the emergency department charge nurse. [facility] [address] [place] [id number] [facility] [address] [place] [id number] Sepsis Event Note (ED) - Evaluation Sepsis Screening Result: No Definite Risk - Focused Exam Vital Signs: Vital Signs Temp Pulse Resp BP Pulse Ox 04/10/20 02:41 36.3 C 119 H 22 H 140/90 96 - My Orders Last 24 Hours: My Active Orders 04/10/20 04:11 CORONAVIRUS COVID-19 PCR [facility] Stat - Assessment/Plan Last 24 Hours: My Active Orders 04/10/20 04:11 CORONAVIRUS COVID-19 PCR [facility] Stat
== END 2020-04-10 05:11 | disposition home or self-care (01) ==
LOC: MW.ED 02:30
DX: J41.0 Simple chronic bronchitis (principal); I10 Essential (primary) hypertension; E66.9 Obesity, unspecified; Z20.828 Contact with and (suspected) exposure to other viral communicable diseases; F17.210 Nicotine dependence, cigarettes, uncomplicated; Z68.41 Body mass index [BMI] 40.0-44.9, adult; Z88.1 Allergy status to other antibiotic agents; Z88.8 Allergy status to other drugs, medicaments and biological substances; Z79.899 Other long term (current) drug therapy
CPT/HCPCS: 36415; 71045; 80048; 82803; 84484; 85025; 87635; 93005; 99285; A9270; 99283; J7620-GY; U0002